=== PATIENT | female | born 2000 | race African-American/Black ===

== ENCOUNTER 2021-05-20 17:47 | Inpatient (IN) | payer OTHER ==
--- OUTSIDE RECORDS SUMMARY | 2021-05-20 17:50 | XMS REPORT | Continuity of Care Document ---
:2000 Author Organization [facility] t Address [address] [place] [address] Care Team Providers Name Role Phone Unavailable Unavailable Unavailable Problems This patient has no known problems. Allergies, Adverse Reactions, Alerts This patient has no known allergies or adverse reactions. Medications This patient has no known medications. Procedures This patient has no known procedures. Results This patient has no known results.
[2021-05-20 18:26] LABS: Absolute Lymphocytes (CBC) 0.8 K/uL (0.7-4.9); Hematocrit 31.7 % (36.0-45.0); Lymphocytes % 2.9 % (15.3-44.8); MPV 8.1 fL (7.6-11.3); RBC Red Blood Cell Count 4.63 M/uL (3.86-4.86)
[2021-05-20] MEDS ORDERED: MORPHINE 4 MG/ML SYR ONE ×2 (18:30→23:08)
[2021-05-20] MEDS ORDERED: ONDANSETRON 4 MG/2 ML VIAL ONE (18:30)
[2021-05-20] MEDS ORDERED: ACETAMINOPHEN 325 MG TABLET ONE (18:31)
[2021-05-20] MEDS ORDERED: NA CHLORIDE 0.9% 1,000 ML ONE (18:31)
[2021-05-20 18:35] LABS: Urine Blood 2+ (Negative); Urine Glucose Negative (Negative); Urine Protein 3+ (Negative); Urine pH 5.5 (5.0-7.0)
[2021-05-20] MEDS ORDERED: CEFTRIAXONE 1000 MG/VIAL ONE (19:01)
[2021-05-20 19:03] LABS: RBC Red Blood Cell Count 4.7 M/uL (3.86-4.86)
--- NOTE | 2021-05-20 19:06 | RAD REPORT ---
EXAM DESCRIPTION: RAD - Chest Single View - 05/20/2021 6:47 pm CLINICAL HISTORY: fever, sickle cell COMPARISON: No comparisons FINDINGS: Lines: None. Lungs: No evidence of edema or pneumonia. Pleural: No significant pleural effusions or pneumothorax. Cardiac: The heart size is within normal limits. Bones: No acute fractures. Other: IMPRESSION: No acute cardiopulmonary disease.
[2021-05-20 19:19] LABS: Urine Bacteria >50 /HPF (<20); Urine RBC <5 /HPF (NONE SEEN)
[2021-05-20 19:19] LABS: BUN Blood Urea Nitrogen 7 mg/dL (7-18); Bicarbonate 27 mmol/L (21-32); Glucose Level 129 mg/dL (74-106); Potassium 3.3 mmol/L (3.5-5.1); Sodium Level 136 mmol/L (136-145)
[2021-05-20 19:33] LABS: Blood Morphology Comment NOT SEEN (NOT SEEN); Platelet Estimate ADEQ
[2021-05-20 19:38] LABS: SARS-COV-2 RT PCR NEGATIVE (NEGATIVE)
--- NOTE | 2021-05-20 20:24 | RAD REPORT ---
EXAM DESCRIPTION: CTAbdomen Pelvis W Contrast - 05/20/2021 8:14 pm CLINICAL HISTORY: Flank pain;Fever COMPARISON: No comparisons TECHNIQUE: CT of the abdomen and pelvis was performed. All CT scans are performed using dose optimization technique as appropriate and may include automated exposure control or mA/KV adjustment according to patient size. FINDINGS: Lower chest: No acute abnormality. Liver: No acute abnormality or suspicious lesions. Biliary: No biliary ductal dilatation. Stomach: No significant focal abnormality. Duodenum: No significant focal abnormality. Pancreas: No significant abnormality. Spleen: No significant abnormality. Adrenal: No suspicious lesions. Kidney/ureter: No hydronephrosis. Left-sided urothelial thickening. Question subtle renal cortical st riations bilaterally. Retroperitoneum: No retroperitoneal adenopathy. Vascular: No aneurysm. Bowel: No significant focal abnormality. Normal appendix. Peritoneum: Small volume of free fluid in the pelvis which is likely physiologic. Bladder: Circumferential bladder wall thickening. Reproductive: No adnexal masses. Bones: No acute fracture. H-shaped vertebral bodies consistent with history of sickle cell disease. 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 . Other: n/a IMPRESSION: Circumferential bladder wall thickening and left urothelial thickening concerning for cy stitis and ascending urinary tract infection. Subtle renal striations could represent bilateral pyelo nephritis as well. No abscess or hydronephrosis.
--- NOTE | 2021-05-20 20:32 | ER ---
Nurse's Notes [facility] Name: Abad Romero Age: 20 yrs Sex: Female : 2000 Arrival Date: 05/20/2021 Time: 17:49 Bed 14 Private MD: Diagnosis: Pyelonephritis acute;Other sickle-cell disorders Presentation: 05/20 17:56 Chief complaint: Patient states: "I am having a sickle cell crisis, muscles are tight". ag7 Coronavirus screen: Client denies travel out of the [place] in the last 14 days. At this time, the client does not indicate any symptoms associated with coronavirus-19. Ebola Screen: No symptoms or risks identified at this time. Initial Sepsis Screen: Does the patient meet any 2 criteria? No. Patient's initial sepsis screen is negative. Does the patient have a suspected source of infection? No. Patient's initial sepsis screen is negative. Risk Assessment: Do you want to hurt yourself or someone else? Patient reports no desire to harm self or others. Onset of symptoms was May 20, 2021. 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 - Social history:: Smoking status: Patient denies any tobacco usage or history of. - Family history:: not pertinent. - Hospitalizations: : No recent hospitalization is reported. Screenin:16 Abuse screen: Denies threats or abuse. Denies injuries from another. Nutritional cb5 screening: No deficits noted. Tuberculosis screening: No symptoms or risk factors identified. 20:52 Fall Risk None identified. tw5 Assessment: 18:10 General: Appears uncomfortable, Behavior is calm, cooperative, appropriate for age. cb5 Pain: Complains of pain in back Pain does not radiate. Pain currently is 6 out of 10 on a pain scale. Neuro: No deficits noted. Level of Consciousness is awake, alert, obeys commands, Oriented to person, place, time, situation, Appropriate for age. Cardiovascular: No deficits noted. Respiratory: No deficits noted. GI: No deficits noted. : No signs and/or symptoms were reported regarding the genitourinary system. EENT: No deficits noted. Derm: No deficits noted. Musculoskeletal: No deficits noted. 18:31 Reassessment: wbc 26.3. edwards 22:01 Reassessment: Report called to Radha zamora.. sv1 Vital Signs: 17:56 BP 135 / 85; Pulse 104; Resp 20; Temp 100.5; Pulse Ox 100% on R/A; Weight 55.02 kg; ag7 Height 5 ft. 4 in. (162.56 cm); Pain 5/10; 20:52 BP 124 / 87 LA Sitting (auto/reg); Pulse 90 MON; Resp 16 S; Temp 98.5(TE); Pulse Ox tw5 100% on R/A; Pain 0/10; 21:52 BP 124 / 73 LA Supine (man/reg); Pulse 77 MON; Resp 16 S; Temp 98.7(O); Pulse Ox 100% sv1 on R/A; Pain 0/10; 17:56 Body Mass Index 20.82 (55.02 kg, 162.56 cm) ag7 ED Course: 17:49 Patient arrived in ED. as 18:00 Triage completed. ag7 18:02 Arm band placed on. ag7 18:03 Matthias Lxu MD is Attending Physician. rn 18:16 Procalcitonin Sent. cb5 18:16 CBC with Automated Diff Sent. cb5 18:16 Basic Metabolic Panel Sent. cb5 18:16 Procalcitonin Sent. cb5 18:16 Basic Metabolic Panel Sent. cb5 18:16 CBC with Diff Sent. cb5 18:25 Ashanti Call, RN is Primary Nurse. cb5 18:25 Blood Culture Adult (2) Sent. cb5 18:25 COVID-19/FLU A+B (Document "Date of Onset" if Symptomatic) Sent. cb5 18:47 XRAY Chest (1 view) In Process Unspecified. EDMS 18:55 Retic Count Sent. cb5 19:02 Primary Nurse role handed off by Ashanti Call, RN cs9 19:03 Attending Physician role handed off by Matthias Lux MD [facility] 19:03 Jun Oshea MD is Attending Physician. 7 19:09 Ashanti Call, RN is Primary Nurse. [facility] 19:17 Bed in low position. Call light in reach. Side rails up X 1. [facility] 19:17 Report given to Tanja Watson [facility] 20:13 CT Abd/Pelvis - IV Contrast Only In Process Unspecified. EDMS 20:30 Prince Briones MD is Hospitalizing Provider. [facility] 20:55 Urine --Ancillary (enter results) Sent. tw5 22:01 No provider procedures requiring assistance completed. Patient admitted, IV remains in sv1 place. Administered Medications: 18:32 Drug: NS 0.9% 1000 ml Route: IV; Rate: 1000 ml; Site: right antecubital; cb5 18:32 Drug: Zofran (Ondansetron) 4 mg Route: IVP; Site: right antecubital; 5 18:33 Drug: morphine 4 mg Route: IVP; Site: right antecubital; 5 18:33 Drug: Tylenol 650 mg Route: PO; 5 19:00 Drug: Rocephin (cefTRIAXone) 1 grams Route: IV; Rate: calculated rate; Site: right cb5 antecubital; 20:50 Follow up: Response: No adverse reaction tw5 22:03 Follow up: Response: No adverse reaction sv1 Outcome: 20:31 Decision to Hospitalize by Provider. [facility] 22:01 Admitted to Med/surg accompanied by tech, room 276, Report called to Radha sv1 22:02 Condition: improved sv1 22:02 Instructed on the need for admit. 22:07 Patient left the ED. sv1 Signatures: Dispatcher [employer] EDVA Ade Og as Matthias Lux MD MD rn Holmes, Maurice, MD MD 7 Tiffany Musa [facility] Emma Kovacs [facility] Walter Lockett, RN GERA 1 Helga-Gianna Vazquez RN RN edwards Ashanti Call, RN GERA 5 Asuncion Hawkins RN RN ag7 Corrections: (The following items were deleted from the chart) 18:02 18:00 PMHx: None; ag7 ag7
--- NOTE | 2021-05-20 20:32 | EDPHYS ---
Physician Documentation [facility] Name: Abad Romero Age: 20 yrs Sex: Female : 2000 Arrival Date: 05/20/2021 Time: 17:49 Bed 14 Private MD: ED Physician Jun Oshea HPI: 05/20 18:14 This 20 yrs old Black Female presents to ER via Ambulatory with complaints of Sickle rn Cell Crisis, Back Pain. 18:14 The patient presents with pain that is acute, with no known mechanism of injury. The rn symptoms are located in the low back. Onset: The symptoms/episode began/occurred 4 day(s) ago. The pain does not radiate. Associated signs and symptoms: Pertinent positives: none Pertinent negatives: abdominal pain, chest pain, fever, hematuria, incontinence, urinary retention. Modifying factors: The patient symptoms are alleviated by nothing, the patient symptoms are aggravated by any movement. Severity of symptoms: At their worst the symptoms were moderate, in the emergency department the symptoms are unchanged. The patient has experienced similar episodes in the past. The patient has not recently seen a physician. Pt reports has sickle cell disease, with 3-4 days of low back pain, no trauma. Similar pain in past, but worse today. No chest pain/sob/abd pain. No nasal congestion. No diarrhea or vomiting. . 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 - Social history:: Smoking status: Patient denies any tobacco usage or history of. - Family history:: not pertinent. - Hospitalizations: : No recent hospitalization is reported. ROS: 18:14 Constitutional: + chills Eyes: Negative for injury, pain, redness, and discharge, ENT: rn Negative for injury, pain, and discharge, Neck: Negative for injury, pain, and swelling, Cardiovascular: Negative for chest pain, palpitations, and edema, Respiratory: Negative for shortness of breath, cough, wheezing, and pleuritic chest pain, Abdomen/GI: Negative for abdominal pain, nausea, vomiting, diarrhea, and constipation, Back: Negative for injury MS/Extremity: Negative for injury and deformity, Skin: Negative for injury, rash, and discoloration, Neuro: Negative for headache, weakness, numbness, tingling, and seizure. Exam: 18:14 Constitutional: This is a well developed, well nourished patient who is awake, alert, rn and in no acute distress. Head/Face: Normocephalic, atraumatic. Eyes: Periorbital areas with no swelling, redness, or edema. Cardiovascular: Tachycardic, regular. No pulse deficits. Respiratory: Speaking full sentences, unlabored. No increased work of breathing, no retractions or nasal flaring. Abdomen/GI: Soft, non-tender Back: No spinal tenderness. Skin: Warm, dry MS/ Extremity: Pulses equal, no cyanosis. Neuro: Awake and alert, GCS 15 Vital Signs: 17:56 BP 135 / 85; Pulse 104; Resp 20; Temp 100.5; Pulse Ox 100% on R/A; Weight 55.02 kg; ag7 Height 5 ft. 4 in. (162.56 cm); Pain 5/10; 20:52 BP 124 / 87 LA Sitting (auto/reg); Pulse 90 MON; Resp 16 S; Temp 98.5(TE); Pulse Ox tw5 100% on R/A; Pain 0/10; 21:52 BP 124 / 73 LA Supine (man/reg); Pulse 77 MON; Resp 16 S; Temp 98.7(O); Pulse Ox 100% sv1 on R/A; Pain 0/10; 17:56 Body Mass Index 20.82 (55.02 kg, 162.56 cm) [facility] MDM: 18:03 Patient medically screened. rn 20:29 Differential diagnosis: Pyelonephritis sickle cell crisis, Ureterolithiasis. Data [facility] reviewed: vital signs, nurses notes, lab test result(s), CBC, electrolytes, urinalysis, radiologic studies, CT scan. Data interpreted: Pulse oximetry: on room air is 100 %. Interpretation: normal. Counseling: I had a detailed discussion with the patient and/or guardian regarding: the historical points, exam findings, and any diagnostic results supporting the discharge/admit diagnosis, lab results, radiology results, the need for further work-up and treatment in the hospital. Response to treatment: the patient's symptoms have mildly improved after treatment. 05/20 18:10 Order name: CBC with Diff rn 05/20 18:10 Order name: Basic Metabolic Panel rn 05/20 18:10 Order name: Procalcitonin rn 05/20 18:10 Order name: Blood Culture Adult (2) rn 05/20 18:10 Order name: Urine Microscopic Only; Complete Time: 19:32 05/20 18:10 Order name: COVID-19/FLU A+B (Document "Date of Onset" if Symptomatic); Complete Time: rn 19:42 05/20 18:11 Order name: CBC with Automated Diff; Complete Time: 19:37 EDWV 05/20 18:11 Order name: Basic Metabolic Panel; Complete Time: 19:27 EDWV 05/20 18:11 Order name: Procalcitonin; Complete Time: 19:42 EDWV 05/20 18:34 Order name: Urine Dipstick-Ancillary; Complete Time: 18:40 EDWV 05/20 18:40 Order name: Urine --Ancillary (enter results) 9 05/20 18:40 Order name: Urine --Ancillary; Complete Time: 19:32 EDWV 05/20 18:51 Order name: Retic Count; Complete Time: 19:05 05/20 19:21 Order name: Urine Culture [facility] 05/20 18:10 Order name: IV Start; Complete Time: 18:16 05/20 18:10 Order name: Urine Dipstick-Ancillary (obtain specimen); Complete Time: 18:37 05/20 18:10 Order name: Urine Test (obtain specimen); Complete Time: 18:37 rn 05/20 18:10 Order name: XRAY Chest (1 view); Complete Time: 19:32 rn 05/20 18:11 Order name: Cardiac monitoring; Complete Time: 18:16 rn 05/20 18:11 Order name: O2 Sat Monitoring; Complete Time: 18:16 rn 05/20 18:40 Order name: Misc. Order: Recollect all labs; Complete Time: 20:50 jl7 05/20 19:33 Order name: Manual Differential; Complete Time: 19:37 EDWV 05/20 19:50 Order name: CT Abd/Pelvis - IV Contrast Only; Complete Time: 20:29 [facility] 05/20 20:52 Order name: Lactate la1 Administered Medications: 18:32 Drug: NS 0.9% 1000 ml Route: IV; Rate: 1000 ml; Site: right antecubital; cb5 18:32 Drug: Zofran (Ondansetron) 4 mg Route: IVP; Site: right antecubital; cb5 18:33 Drug: morphine 4 mg Route: IVP; Site: right antecubital; cb5 18:33 Drug: Tylenol 650 mg Route: PO; cb5 19:00 Drug: Rocephin (cefTRIAXone) 1 grams Route: IV; Rate: calculated rate; Site: right cb5 antecubital; 20:50 Follow up: Response: No adverse reaction tw5 22:03 Follow up: Response: No adverse reaction sv1 Disposition Summary: 05/20/21 20:31 Hospitalization Ordered Hospitalization Status: Inpatient Admission [facility] Provider: Prince Anselmo [facility] Location: Telemetry/MedSurg (Inpatient) [facility] Condition: Stable [facility] Problem: new [facility] Symptoms: have improved [facility] Bed/Room Type: Standard [facility] Room Assignment: 216(05/20/21 21:19) Diagnosis - Pyelonephritis acute [facility] - Other sickle-cell disorders [facility] Forms: - Medication Reconciliation Form [facility] - SBAR form [facility] Signatures: Dispatcher [employer] EDMS Matthias Lux MD MD rn Attema, Lee, OCEANOLOGIST-C OCEANOLOGIST-Cla1 Michelle Cerda RN RN cg Letty Power RN RN jl7 Jun Oshea MD MD [facility] Ashanti Call RN RN cb5 Asuncion Hawkins RN RN Tiffany Sheikh 5 Walter Lockett RN sv1 Corrections: (The following items were deleted from the chart) 18:02 18:00 PMHx: None; ag7 ag7 21:19 20:31 [facility] [place]
--- NOTE | 2021-05-20 21:01 | P.HP ---
Certification for Inpatient Patient admitted to: Inpatient With expected LOS: >2 Midnights Patient will require the following post-hospital care: None Practitioner: I am a practitioner with admitting privileges, knowledge of patient current condition, hospital course, and medical plan of care. Services: Services provided to patient in accordance with Admission requirements found in Title 42 Section 412.3 of the Code of Federal Regulations Patient History Date of Service: 05/20/21 Reason for admission: Pyelonephritis History of Present Illness: 20-year-old -[place] female with history of sickle cell disease presents emergency department for right flank pain over the course of last 4 days. Patient does not frequently have sickle cell crisis. Patient was evaluated here in the emergency department labs were significant for leukocytosis white blood cell count 26.3 hemoglobin 10.6 hematocrit 31.7 potassium 3.3 procalcitonin 1.73 urinalysis nitrite +1+ leukoesterase on microscopic Alysis greater than 50 bacteria too numerous to count white blood cell CT abdomen pelvis with IV contrast demonstrates circumferential bladder wall thickening and left urothelial thickening concerning for cystitis and ascending urinary tract infection subtle renal striations could represent bilateral pyelonephritis as well no abscess or hydronephrosis noted. Patient with acute complicated urinary tract infection was given dose of Rocephin in the emergency department. Patient appears nontoxic vital signs are stable blood pressure 124/87 heart rate 92. Will admit to the floor for further evaluation and management of pyelonephritis, possible sickle cell crisis. - Past Medical/Surgical History -: Sickle cell disease -: None Psychosocial/ Personal History: Patient lives at home with family - Family History Mother -: Cancer Father -: Cancer - Social History Smoking Status: Never smoker Alcohol use: No CD- Drugs: No Caffeine use: Yes Place of Residence: Home Review of Systems 10-point ROS is otherwise unremarkable General: Chills, Malaise Musculoskeletal: Back Pain Physical Examination - Physical Exam General: Alert, In no apparent distress, Oriented x3 HEENT: Atraumatic, PERRLA, Mucous membr. moist/pink, EOMI, Sclerae nonicteric Neck: Supple, 2+ carotid pulse no bruit, No LAD, Without JVD or thyroid abnormality Respiratory: Clear to auscultation bilaterally, Normal air movement Cardiovascular: Regular rate/rhythm, Normal S1 S2 Gastrointestinal: Normal bowel sounds, No tenderness Musculoskeletal: No tenderness Integumentary: No rashes Neurological: Normal speech, Normal strength at 5/5 x4 extr, Normal tone, Normal affect - Studies Laboratory Data (last 24 hrs) 05/20/21 18:46: Sodium 136, Potassium 3.3 L, BUN 7, Creatinine 0.64, Glucose 129 H 05/20/21 18:10: WBC 26.30 H*, Hgb 10.6 L, Hct 31.7 L, Plt Count 249 Assessment and Plan - Plan Assessment: Sepsis without severe sepsis or septic shock secondary to pyelonephritis/complicated UTI Sickle cell crisis Plan: Sepsis without severe sepsis or septic shock secondary to pyelonephritis/ complicated UTI: Blood and urine cultures were obtained. Patient appears nontoxic, feels well without any nausea or vomiting. Will continue with IV fluids, IV antibiotics, as needed pain medications. Wait on results from urine/blood cultures. Vital signs are stable no signs of endorgan damage at this time. Lactic acid pending. Sickle cell crisis: Continue with as needed pain medication, daily reticulocyte count in addition to CBC. DVT PPX: Lovenox Code status: Full Discharge Plan: Home Plan to discharge in: 48 Hours - Advance Directives Does patient have a Living Will: No Does patient have a Durable POA for Healthcare: No - Code Status/Comfort Care Code Status Assessed: Yes (Full code) Critical Care: No Time Spent Managing Pts Care (In Minutes): 55
[2021-05-20] MEDS ORDERED: ONDANSETRON 4 MG/2 ML VIAL IV PRN (22:06)
[2021-05-20] MEDS ORDERED: MORPHINE 2 MG/ML SYR IV PRN (22:06)
[2021-05-20] MEDS: NA CHLORIDE 0.9% 1,000 ML IV SCH (22:30)
[2021-05-20 22:39] VITALS: O2SAT 100
[2021-05-20 22:46] VITALS: BMI 20.6
[2021-05-21] MEDS ORDERED: ACETAMINOPHEN 325 MG TABLET PO PRN (01:25)
[2021-05-21] MEDS: HYDROCODONE/APAP 5/325 MG TAB PO PRN ×3 (01:35→18:44)
--- NOTE | 2021-05-21 02:42 | P.INFCA ---
Sepsis Focused Assessment - Focused Assessment Complete? Sepsis Focused Assessment Completed?: Yes - Sepsis Screen Result Severe Sepsis: Negative Septic Shock: Negative - Evaluation Current stage of sepsis: Ruled out Reason for ruling out sepsis: Sepsis without severe sepsis or septic shock - Vital Signs Reviewed: Yes Temperature: 99.5 F Heart rate: 96 Blood Pressure: 120/63 Respiratory Rate: 16 O2 Sat by Pulse Oximetry: 99
[2021-05-21 05:35] LABS: Absolute Lymphocytes (CBC) 0.9 K/uL (0.7-4.9); Hematocrit 27.7 % (36.0-45.0); Lymphocytes % 3.7 % (15.3-44.8); MPV 8.1 fL (7.6-11.3); RBC Red Blood Cell Count 3.99 M/uL (3.86-4.86)
[2021-05-21 06:04] LABS: ALT/SGPT 11 U/L (12-78); AST/SGOT 8 U/L (15-37); Alkaline Phosphatase 62 U/L (45-117); BUN Blood Urea Nitrogen 5 mg/dL (7-18); Bicarbonate 28 mmol/L (21-32); Bilirubin Total 1.3 mg/dL (0.2-1.0); Glucose Level 122 mg/dL (74-106); Magnesium 2.2 mg/dL (1.8-2.4); Potassium 3.4 mmol/L (3.5-5.1); Protein, Total 7.6 g/dL (6.4-8.2); Sodium Level 136 mmol/L (136-145)
[2021-05-21] MEDS: NA CHLORIDE 0.9% 1,000 ML IV SCH ×2 (06:15→14:04)
[2021-05-21] MEDS: ENOXAPARIN 40 MG/0.4 ML SQ SCH (08:00)
[2021-05-21] MEDS: Levofloxacin 750mg IV 750 MG/150 ML BAG IV SCH (08:00)
[2021-05-21] MEDS: FOLIC ACID 1 MG TABLET PO SCH (08:44)
[2021-05-21] MEDS ORDERED: MORPHINE 4 MG/ML SYR IV PRN (08:48)
[2021-05-21] MEDS ORDERED: CEFTRIAXONE 1,000 MG in NA CHLORIDE 0.9% 50 ML IVPB SCH (09:00)
[2021-05-21] MEDS ORDERED: POTASSIUM CL SA 10 MEQ TAB PO ONE ×2 (09:00→21:00)
--- NOTE | 2021-05-21 11:41 | P.PN ---
Subjective Date of Service: 05/21/21 Chief Complaint: Pyelonephritis Subjective: Improving Physical Examination - Vital Signs Temperature: 99.5 F Blood Pressure: 137/81 Pulse: 78 Respirations: 16 Pulse Ox (%): 100 - Physical Exam General: In no apparent distress, Cooperative HEENT: Atraumatic, Normocephalic Respiratory: Clear to auscultation bilaterally, Normal air movement Cardiovascular: Regular rate/rhythm, Normal S1 S2 Gastrointestinal: Other (No CVA tenderness) Musculoskeletal: No clubbing, No swelling, No contractures, No erythema Neurological: Normal speech, Normal affect - Studies Laboratory Data (last 24 hrs) 05/20/21 18:46: Sodium 136, Potassium 3.3 L, BUN 7, Creatinine 0.64, Glucose 129 H 05/20/21 18:10: WBC 26.30 H*, Hgb 10.6 L, Hct 31.7 L, Plt Count 249 Assessment And Plan - Current Problems (Diagnosis) (1) Acute pyelonephritis due to bacteria Current Visit: Yes Status: Acute (2) Sickle cell anemia Current Visit: Yes Status: Acute Physician Review Additional Text: Assessment Patient is a 20 year old female with a history of sickle cell anemia currently admitted with pyelonephritis after she presented with a flank pain Sepsis UTI Sickle cell anemia PLAN: Will change antibiotics to levofloxacin Follow up urine and blood cultures Resume folic acid for sickle cell anemia Discharge in 2-3 days
[2021-05-21] MEDS ORDERED: INFLUENZA VACCINE (for 6+ mo) 0.5 ML DOSE IMVAC ONE (12:00)
[2021-05-22] MEDS: NA CHLORIDE 0.9% 1,000 ML IV SCH (02:11)
[2021-05-22] MEDS: HYDROCODONE/APAP 5/325 MG TAB PO PRN ×2 (02:12→08:32)
[2021-05-22 05:20] LABS: Absolute Lymphocytes (CBC) 1.1 K/uL (0.7-4.9); Hematocrit 28.2 % (36.0-45.0); Lymphocytes % 7.7 % (15.3-44.8); MPV 8.2 fL (7.6-11.3); RBC Red Blood Cell Count 3.98 M/uL (3.86-4.86)
[2021-05-22 05:39] LABS: ALT/SGPT 11 U/L (12-78); AST/SGOT 8 U/L (15-37); Albumin 2.9 g/dL (3.4-5.0); Alkaline Phosphatase 56 U/L (45-117); BUN Blood Urea Nitrogen 4 mg/dL (7-18); Bicarbonate 27 mmol/L (21-32); Bilirubin Total 1.1 mg/dL (0.2-1.0); Glucose Level 111 mg/dL (74-106); Magnesium 2.1 mg/dL (1.8-2.4); Potassium 3.7 mmol/L (3.5-5.1); Protein, Total 7.5 g/dL (6.4-8.2); Sodium Level 135 mmol/L (136-145)
[2021-05-22] MEDS: FOLIC ACID 1 MG TABLET PO SCH (08:29)
[2021-05-22] MEDS: ENOXAPARIN 40 MG/0.4 ML SQ SCH (08:29)
[2021-05-22] MEDS: Levofloxacin 750mg IV 750 MG/150 ML BAG IV SCH (08:29)
[2021-05-22] MEDS ORDERED: POTASSIUM 25 MEQ EFFERV TAB PO ONE (09:00)
[2021-05-22 12:29] VITALS: BP 128/84; TEMP 98.5
[2021-05-22] MEDS ORDERED: MORPHINE 2 MG/ML SYR IV PRN (12:52)
== END 2021-05-22 04:00 | disposition home or self-care (01) | DRG 871 ==
LOC: ER 17:47 → ERHOLD 20:54 → 2ND 21:51
PROVIDERS: ADMIT Internal Medicine; ATTEND Internal Medicine
DX: A41.9 Sepsis, unspecified organism (principal); D57.00 Hb-SS disease with crisis, unspecified; N10 Acute pyelonephritis; Z23 Encounter for immunization; Z20.822 Contact with and (suspected) exposure to COVID-19
CPT/HCPCS: 0240U; 36415; 71045; 74177; 80048; 80053; 81003; 81015; 81025; 83605; 83735; 84132; 84145; 85025; 85044; 87040; 87077; 87086; 87088; 87186; 87205; 90471; 96374; 96375; 99285; J1650; J2405; J7030; Q2035; Q9967

== ENCOUNTER 2022-04-17 16:55 | Inpatient (IN) | payer OTHER ==
--- OUTSIDE RECORDS SUMMARY | 2022-04-17 16:59 | XMS REPORT | Continuity of Care Document ---
:2000 Author Organization [facility] t Address [facility] 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-john 04-13 [place] y of l disease l disease 00[place] without without 00 Medical crisis crisis [facility] Allergies, Adverse Reactions, Alerts Allergy Allergy Status Severity Reaction(s) Onset Inactive Treating Comm ents Source Name Type Date Date Clinician NO KNOWN Drug Active Univers ALLERGIE Class ity of S [facility] Social History Social Habit Start Date Stop Date Quantity Comments Source Exposure to 2022-02-17 2022-02-27 Not sure [facility]-CoV-2 00:00:00 08:23:00 [facility] (event) [facility] Alcohol intake 2021-09-06 2021-09-06 Ex-drinker [facility] 00:00:00 00:00:00 (finding) [facility] Tobacco use and 2021-08-22 2021-08-22 Smokeless tobacco Un iversity of exposure 00:00:00 00:00:00 non-user [facility] Sex Assigned At 2000 2000 Universit y of 00:00:00 00:00:00 [facility] Smoking Status Start Date Stop Date Source Never smoked tobacco [facility] Medications Ordered Filled Start Stop Current Ordering Indication Dosage Frequency Signature Comments Components Source Medication Medication Date Date Medication? Clinician (SIG) Name Name medroxyPROG 2021-03- Yes [id number] 150mg Univers ESTERone 2-15 08-16 ity of (DEPO-PROVE 16:45: 15:44 [place] RA) syringe 00 :00 Medical 150 mg Branch medroxyPROG 2021-03- Yes [id number] 150mg 150 mg, Univers ESTERone 2-15 08-16 Intramuscu ity of (DEPO-PROVE 16:45: 15:44 [facility], [place] RA) syringe 00 :00 [id number], Med ical 150 mg 2 doses, Branch First dose on Francia 03/01/22 at 1045, Last dose on Francia 05/24/22 at 1045, Routine medroxyPROG 2021- No [id number] 150mg Univers ESTERone 12-07 ity of (DEPO-PROVE 16:30: 15:37 [place] RA) syringe 00 :00 Medical 150 mg Branch medroxyPROG 2021- No [id number] 150mg 150 mg, Univers ESTERone 12-07 Intramuscu ity of (DEPO-PROVE 16:30: 15:37 lar, ONCE, [place] RA) syringe 00 :00 1 dose, On Me dical 150 mg Francia Branch 12/07/21 at 1130, Routine medroxyPROG 2022- No [id number] 150mg Univers ESTERone 09-0624 ity of (DEPO-PROVE 15:00: 14:59 [place] RA) 00 :00 Medical injection Branch 150 mg medroxyPROG 2021- No [id number] 150mg Univers ESTERone 09-06 ity of (DEPO-PROVE 15:00: 15:37 [place] RA) 00 :05 Medical injection Branch 150 mg foLIC acid 2020-1 Yes [id number] 1mg Take 1 Univers 1 mg tablet 0-07 tablet by ity of 00:00: mouth [place] 00 daily. Medical Branch foLIC acid 2020-1 Yes [id number] 1mg Take 1 Univers 1 mg tablet 0-07 tablet by ity of 00:00: mouth [place] 00 daily. Medical Branch foLIC acid 2020-1 Yes [id number] 1mg Take 1 Univers 1 mg tablet 0-07 tablet by ity of 00:00: mouth [place] 00 daily. Medical Branch foLIC acid 2020-1 Yes [id number] 1mg Take 1 Univers 1 mg tablet 0-07 tablet by ity of 00:00: mouth [place] 00 daily. Medical Branch Immunizations Ordered Filled Immunization Date Status Comments [facility] e Immunization Name Name Influenza Virus 2017-12-11 Completed Universit y of Vaccine Quad .5 mL 00:00:00 [place] Medical IM 6+ MO Branch Influenza Virus 2017-12-11 Completed Universit y of Vaccine Quad .5 mL 00:00:00 [place] Medical IM 6+ MO Branch Influenza Virus 2017-12-11 Completed Universit y of Vaccine Quad .5 mL 00:00:00 [place] Medical IM 6+ MO Branch Influenza Virus 2017-12-11 Completed Universit y of Vaccine Quad .5 mL 00:00:00 [place] Medical IM 6+ MO Branch Influenza Virus 2016-03-07 Completed Universit y of Vaccine Quad IM 3+ 00:00:00 [facility] Influenza Virus 2016-03-07 Completed Universit y of Vaccine Quad IM 3+ 00:00:00 [facility] Influenza Virus 2016-03-07 Completed Universit y of Vaccine Quad IM 3+ 00:00:00 [facility] Influenza Virus 2016-03-07 Completed Universit y of Vaccine Quad IM 3+ 00:00:00 [facility] Influenza Virus 2015-02-07 Completed Universit y of Vaccine Quad IM 3+ 00:00:00 [facility] Influenza Virus 2015-02-07 Completed Universit y of Vaccine Quad IM 3+ 00:00:00 [facility] Influenza Virus 2015-02-07 Completed Universit y of Vaccine Quad IM 3+ 00:00:00 [facility] Influenza Virus 2015-02-07 Completed Universit y of Vaccine Quad IM 3+ 00:00:00 [facility] Influenza Virus 2014-05-26 Completed Universit y of Vaccine Quad IM 00:00:00 [place] Med ical Multi-dose 6+ MO Branch Influenza Virus 2014-05-26 Completed Universit y of Vaccine Quad IM 00:00:00 [place] Med ical Multi-dose 6+ MO Branch Influenza Virus 2014-05-26 Completed Universit y of Vaccine Quad IM 00:00:00 [place] Med ical Multi-dose 6+ MO Branch Influenza Virus 2014-05-26 Completed Universit y of Vaccine Quad IM 00:00:00 [place] Med ical Multi-dose 6+ MO Branch HPV 2013-08-22 Completed University of 00:00:00 [facility] HPV 2013-08-22 Completed University of 00:00:00 [facility] HPV 2013-08-22 Completed University of 00:00:00 [facility] HPV 2013-08-22 Completed University of 00:00:00 [facility] Varicella 2013-08-05 Completed University of (varivax)(chicken 00:00:00 [place] M edical pox) Branch TDAP (ADACEL) 2013-08-05 Completed University of VACCINE 00:00:00 [facility] Varicella 2013-08-05 Completed University of (varivax)(chicken 00:00:00 [place] M edical pox) Branch TDAP (ADACEL) 2013-08-05 Completed University of VACCINE 00:00:00 [facility] Varicella 2013-08-05 Completed University of (varivax)(chicken 00:00:00 [place] M edical pox) Branch TDAP (ADACEL) 2013-08-05 Completed University of VACCINE 00:00:00 [facility] Varicella 2013-08-05 Completed University of (varivax)(chicken 00:00:00 [place] M edical pox) Branch TDAP (ADACEL) 2013-08-05 Completed University of VACCINE 00:00:00 [facility] Pneumococcal 2013-02-11 Completed University o f Polysaccharide, 00:00:00 [place] Med ical PPSV23 (PNEUMOVAX) Branch Pneumococcal 2013-02-11 Completed University o f Polysaccharide, 00:00:00 [place] Med ical PPSV23 (PNEUMOVAX) Branch Pneumococcal 2013-02-11 Completed University o f Polysaccharide, 00:00:00 [facility] ical PPSV23 (PNEUMOVAX) Branch Pneumococcal 2013-02-11 Completed University o f Polysaccharide, 00:00:00 [facility] ical PPSV23 (PNEUMOVAX) Branch Influenza Virus 2013-01-12 Completed Universit y of Vaccine (3+ yrs) 00:00:00 [facility] Influenza Virus 2013-01-12 Completed Universit y of Vaccine (3+ yrs) 00:00:00 [facility] Influenza Virus 2013-01-12 Completed Universit y of Vaccine (3+ yrs) 00:00:00 [facility] Influenza Virus 2013-01-12 Completed Universit y of Vaccine (3+ yrs) 00:00:00 [facility] HPV 2012-08-22 Completed University of 00:00:00 [facility] HPV 2012-08-22 Completed University of 00:00:00 [facility] HPV 2012-08-22 Completed University of 00:00:00 [facility] HPV 2012-08-22 Completed University of 00:00:00 [facility] Vital Signs Vital Name Observation Time Observation Value Comments Source Systolic blood 2022-03-01 15:41:00 120 mm[Hg] Univer sity of pressure [facility] Diastolic blood 2022-03-01 15:41:00 65 mm[Hg] Unive rsity of pressure [facility] Heart rate 2022-03-01 15:41:00 78 /min Universi ty of [facility] Body temperature 2022-03-01 15:41:00 36.89 John Univ ersity of [facility] Respiratory rate 2022-03-01 15:41:00 16 /min Univ ersity of [facility] Body height 2022-03-01 15:41:00 162.6 cm Universi ty of [facility] Body weight 2022-03-01 15:41:00 61.598 kg Universi ty of [facility] BMI 2022-03-01 15:41:00 23.31 kg/m2 Universi ty of [facility] Systolic blood 2021-12-07 15:34:00 122 mm[Hg] Univer sity of pressure [facility] Diastolic blood 2021-12-07 15:34:00 77 mm[Hg] Unive rsity of pressure [facility] Heart rate 2021-12-07 15:34:00 75 /min Universi ty of [facility] Body temperature 2021-12-07 15:34:00 36.89 [facility] ersity of [facility] Respiratory rate 2021-12-07 15:34:00 20 /min [facility] ersity of [facility] Body height 2021-12-07 15:34:00 162.6 cm Universi ty of [facility] Body weight 2021-12-07 15:34:00 60.374 kg Universi ty of [facility] BMI 2021-12-07 15:34:00 22.85 kg/m2 Universi ty [facility] Procedures This patient has no known procedures. Encounters Start End Encounter Admission Attending Care Care Encounter Source Date/Time Date/Time Type Type Clinicians Facility Department ID 2022-05-24 2022-05-24 Outpatient R [facility] [id number] Univers 09:30:00 09:30:00 ity [facility] 2022-03-01 2022-03-01 Outpatient R BRIE FLMARITZA [facility] [id number] Univers 09:30:00 09:40:13 BONNIE ity [facility] 2022-03-01 2022-03-01 Nurse Visit, Alonzo-Rmchp Nurse [facility] [id number] .[id number] Univers 09:30:00 09:40:13 Visit Bonnie Barbosa CINDER DU[employer] CRANE OPERATOR [id number] [facility] [id number] Se as MATERNAL [id number] [facility] & CHILD [address] [place] [address] 2022-02-27 2022-02-27 Christine Geraldineshira [facility] [id number] Univers 00:00:00 00:00:00 Tori SPECIALTY [id number] ity of [place] [id number] [place] [id number] [address] 2021-12-07 2021-12-07 Outpatient R NOELLE [facility] [id number] Univers 10:00:00 10:32:14 PATRICIO min o [facility] 2021-12-07 2021-12-07 [facility] [id number] .[id number] Univers 10:00:00 10:32:14 Visit Patricio Schreiber [employer] CRANE OPERATOR [id number] ity of [facility] [id number] Se as MATERNAL [id number] [facility] & CHILD [address] [place] [address] 2021-12-07 2021-12-07 Outpatient R [facility] [id number] Univers 10:00:00 10:00:00 ity of [facility] 2021-09-07 2021-09-07 [facility] [id number] Univers 00:00:00 00:00:00 Patricio Ramos [employer] DU[employer] CRANE OPERATOR [id number] ity of [facility] [id number] Se as MATERNAL [id number] [facility] & CHILD [address] [place] [address] 2021-09-06 2021-09-06 Outpatient R NOELLE [facility] [id number] Univers 09:45:00 10:03:32 PATRICIO min o [facility] 2021-09-06 2021-09-06 [facility] [id number] Univers 09:45:00 10:03:32 Visit Patricio Ramos [employer] CRANE OPERATOR [id number] ity of [facility] [id number] Se as MATERNAL [id number] [facility] & CHILD [address] [place] [address] 2021-09-06 2021-09-06 Outpatient R NOELLE [facility] [id number] Univers 09:45:00 09:45:00 INOCENCIAENRIQUETAA ity o [facility] 2021-08-22 2021-08-22 Outpatient R NOELLE [facility] [id number] Univers 13:30:00 14:27:19 [facility] 2021-08-22 2021-08-22 Outpatient R NOELLE [facility] [id number] Univers 13:30:00 14:27:19 [facility] 2021-08-22 2021-08-22 Outpatient R NOELLE [facility] [id number] Univers 13:30:00 14:27:19 [facility] o [facility] 2021-08-22 2021-08-22 [facility] [id number] Univers 13:30:00 14:27:19 [facility] [employer]ER [employer] CRANE OPERATOR [id number] ity of [facility] [id number] Se as MATERNAL [id number] [facility] & CHILD [address] [place] [address] 2021-08-22 2021-08-22 Orders Doctor CORTNEY [id number] [id number] Univers 00:00:00 00:00:00 Only Unassigned, OMAR [id number] ity of [place] [facility] [id number] Se as [id number] [place] [address] Branch Results This patient has no known results.
[2022-04-17 18:14] LABS: Urine Blood 1+ (Negative); Urine Glucose Negative (Negative); Urine Protein 2+ (Negative); Urine pH 5.5 (5.0-7.0)
[2022-04-17 18:38] LABS: Absolute Lymphocytes (CBC) 1.2 K/uL (0.7-4.9); Hematocrit 32.4 % (36.0-45.0); Lymphocytes % 3.6 % (15.3-44.8); MCV 70.4 fL (80-100); MPV 7.8 fL (7.6-11.3)
[2022-04-17 18:40] LABS: Urine Bacteria 20-50 /HPF (<20); Urine Mucus Slight /HPF (None Seen); Urine RBC <5 /HPF (None Seen); Urine WBC Clump Occasional /HPF (None Seen)
--- NOTE | 2022-04-17 18:44 | RAD REPORT ---
EXAM DESCRIPTION: US - Abdomen Exam Limited - 04/17/2022 6:16 pm CLINICAL HISTORY: upper abdomen pain COMPARISON: No comparisons FINDINGS: The gallbladder demonstrates 6 mm polyp versus adherent stone. No pericholecystic fluid or gallbladder wall thickening. The common bile duct is normal measuring 4 mm. The liver demonstrates no findings of intrahepatic biliary dilatation. IMPRESSION: 6 mm polyp versus adherent stone.
[2022-04-17 18:57] LABS: Albumin 4.1 g/dL (3.4-5.0); Bilirubin Total 2.3 mg/dL (0.2-1.0); Potassium 3.6 mmol/L (3.5-5.1); Protein, Total 9.1 g/dL (6.4-8.2)
[2022-04-17] MEDS ORDERED: NA CHLORIDE 0.9% 1,000 ML ONE ×2 (19:19→20:23)
[2022-04-17] MEDS ORDERED: MORPHINE 4 MG/ML SYR ONE (19:19)
[2022-04-17] MEDS ORDERED: FAMOTIDINE 20 MG/2 ML VIAL IV ONE (19:20)
[2022-04-17] MEDS ORDERED: ONDANSETRON 4 MG/2 ML VIAL ONE ×2 (19:20→22:01)
--- NOTE | 2022-04-17 19:34 | RAD REPORT ---
EXAM DESCRIPTION: CTAbdomen Pelvis W Contrast - 04/17/2022 7:27 pm CLINICAL HISTORY: Abdominal pain. upper abdomen pain COMPARISON: Abdomen Pelvis W Contrast dated 05/20/2021; Abdomen Exam Limited dated 04/17/2022 TECHNIQUE: Biphasic CT imaging of the abdomen and pelvis was performed with 100 ml non-ionic IV cont rast. All CT scans are performed using dose optimization technique as appropriate and may include automated exposure control or mA/KV adjustment according to patient size. FINDINGS: The lung bases are clear. The liver, spleen, pancreas, adrenal glands and kidneys are within normal limits. No bowel obstruction, free air, free fluid or abscess. The appendix is normal. No evidence of signi ficant lymphadenopathy. Mild osteosclerosis. IMPRESSION: No acute intra-abdominal or pelvic finding.
--- NOTE | 2022-04-17 19:50 | EDPHYS ---
Physician Documentation [facility] Name: Abad Romero Age: 21 yrs Sex: Female : 2000 Arrival Date: 04/17/2022 Time: 17:[address] Private MD: ED Physician Matthias Lux HPI: 04/17 18:15 This 21 yrs old Black Female presents to ER via Ambulatory with complaints of Abdominal cp Pain. 18:15 The patient presents with abdominal pain in the epigastric area. Onset: The cp symptoms/episode began/occurred yesterday. 18:15 The symptoms do not radiate. Associated signs and symptoms: Pertinent positives: cp anorexia, nausea, Pertinent negatives: chest pain, constipation, diarrhea, dysuria, fever, vomiting. The symptoms are described as constant, sharp. 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 - Social history:: Smoking status: Patient denies any tobacco usage or history of. ROS: 18:20 Constitutional: Negative for body aches, chills, fever, poor PO intake. cp 18:20 Eyes: Negative for injury, pain, redness, and discharge. cp 18:20 ENT: Negative for drainage from ear(s), ear pain, sore throat, difficulty swallowing, difficulty handling secretions. 18:20 Cardiovascular: Negative for chest pain, edema, palpitations. 18:20 Respiratory: Negative for cough, shortness of breath, wheezing. 18:20 Abdomen/GI: Positive for abdominal pain, nausea, anorexia, of the epigastric area, Negative for vomiting, diarrhea, constipation. 18:20 Back: Negative for radiated pain. 18:20 : Negative for urinary symptoms, hematuria. 18:20 Neuro: Negative for altered mental status, dizziness, headache, syncope, weakness. 18:20 All other systems are negative. Exam: 18:25 Constitutional: The patient appears in no acute distress, alert, awake, cp non-diaphoretic, non-toxic, well developed, well nourished, uncomfortable. 18:25 Head/Face: Normocephalic, atraumatic. cp 18:25 Eyes: Periorbital structures: appear normal, Conjunctiva: normal, no exudate, no cp injection, Sclera: no appreciated abnormality, Lids and lashes: appear normal, bilaterally. 18:25 ENT: External ear(s): are unremarkable, Nose: is normal, Mouth: Lips: moist, Oral mucosa: pink and intact, moist, Posterior pharynx: is normal, airway is patent, no erythema, no exudate. 18:25 Neck: ROM/movement: is normal, is supple, without pain, no range of motions limitations. 18:25 Chest/axilla: Inspection: normal. 18:25 Cardiovascular: Rate: tachycardic, Rhythm: regular. 18:25 Respiratory: the patient does not display signs of respiratory distress, Respirations: normal, no use of accessory muscles, no retractions, labored breathing, is not present, Breath sounds: are clear throughout, no decreased breath sounds, no stridor, no wheezing. 18:25 Abdomen/GI: Inspection: abdomen appears normal, Bowel sounds: active, all quadrants, Palpation: soft, in all quadrants, moderate abdominal tenderness, in the epigastric area, rebound tenderness, is not appreciated, voluntary guarding, is elicited in the epigastric area. 18:25 Back: pain, is absent, ROM is normal, CVA tenderness, is absent. 18:25 Skin: no rash present. 18:25 Neuro: Orientation: to person, place \T\ time. Mentation: is normal, Motor: moves all fours, strength is normal, Sensation: is normal. Vital Signs: 17:53 BP 131 / 89; Pulse 110; Resp 16; Temp 98.6(TE); Pulse Ox 100% on R/A; Weight 54.43 kg; vg1 Height 5 ft. 4 in. (162.56 cm); Pain 8/10; 20:56 BP 126 / 73; Pulse 95; Resp 17 S; Pulse Ox 99% on R/A; lg3 17:53 Body Mass Index 20.60 (54.43 kg, 162.56 cm) vg1 MDM: 18:00 Patient medically screened. cp 18:30 Differential diagnosis: cholecystitis, Cholelithiasis, non-specific abd pain, cp pancreatitis, Peptic Ulcer Disease, Perf. Duodenal Ulcer, Perf. Gastric Ulcer, Pyelonephritis, Ureterolithiasis, urinary tract infection. 19:40 Data reviewed: vital signs, nurses notes, lab test result(s), radiologic studies, CT cp scan, ultrasound. 19:40 Consideration of Admission/Observation Patient was admitted/placed on observation. cp Management of patient was discussed with the following: Radarman: Tay Varela NP. I considered the following discharge prescriptions or medication management in the emergency department Medications were administered in the Emergency Department. See MAR. Care significantly affected by the following chronic conditions: Sickle Cell. Counseling: I had a detailed discussion with the patient and/or guardian regarding: the historical points, exam findings, and any diagnostic results supporting the discharge/admit diagnosis, lab results, radiology results, the need for further work-up and treatment in the hospital. 04/17 18:00 Order name: CBC with Diff cp 04/17 19:37 Interpretation: Normal except: WBC 32.30; HGB 10.4; HCT 32.4; MCV 70.4; MCH 22.7; RDW cp 15.4; JIMENA% 89.5; LYM% 3.6; NEUT A 28.9; MNA 2.2. 04/17 18:00 Order name: CMP; Complete Time: 19:01 cp 04/17 19:38 Interpretation: Normal except: NA 134; GLUC 109; BUN 6; AST 10; ALT 12; BILIT 2.3; TP cp 9.1; GLOB 5.0; A/G 0.8. 04/17 18:00 Order name: Lipase; Complete Time: 19:01 cp 04/17 18:00 Order name: Urine Microscopic Only; Complete Time: 18:46 cp 04/17 19:38 Interpretation: Normal except: UWBC >50; UBACT 20-50; UWBC Clump Occasional; BYST cp Occasional. 04/17 18:14 Order name: Urine Dipstick-Ancillary; Complete Time: 18:46 EDMS 04/17 18:52 Interpretation: Normal except: UKET 1+; UBLD 1+; UPROT 2+; UNIT Positive; UESTR 1+. cp 04/17 18:15 Order name: Urine --Ancillary (enter results); Complete Time: 18:46 bd 04/17 18:00 Order name: US Abdomen Limited; Complete Time: 18:46 04/17 18:46 Interpretation: Report reviewed. 04/17 18:43 Order name: Urine Culture EDWV 04/17 18:51 Order name: Lactate w/ 2H reflex if indic. 04/17 18:51 Order name: Procalcitonin 04/17 18:51 Order name: COVID-19/FLU A+B 04/17 18:51 Order name: Blood Culture Adult (2) 04/17 18:52 Order name: CT Abd/Pelvis - IV Contrast Only; Complete Time: 19:37 04/17 19:51 Order name: Manual Differential EDWV 04/17 18:00 Order name: IV Saline Lock; Complete Time: 18:46 04/17 18:00 Order name: Labs collected and sent; Complete Time: 18:46 04/17 18:00 Order name: Urine Dipstick-Ancillary (obtain specimen); Complete Time: 18:13 04/17 18:00 Order name: Urine Test (obtain specimen); Complete Time: 18:13 04/17 20:00 Order name: Chest Single View XRAY la 04/17 20:55 Order name: RAD EDWV Administered Medications: 19:15 Drug: Zofran (Ondansetron) 4 mg Route: IVP; Site: left antecubital; vg1 19:15 Drug: NS 0.9% (30 ml/kg) 30 ml/kg {Note: 1000 mL .} Route: IV; Rate: bolus; Site: left vg1 antecubital; 19:17 Drug: Pepcid (famotidine) 20 mg Route: IVP; Site: left antecubital; vg1 19:19 Not Given (Physician Discretion): NS 0.9% 1000 ml IV at 1 bolus Per protocol; 1000 mL cp bolus 19:19 Drug: morphine 4 mg Route: IVP; Infused Over: 4 mins; Site: left antecubital; vg1 20:26 Drug: NS 0.9% (30 ml/kg) 30 ml/kg Route: IV; Rate: bolus; Site: left antecubital; lg3 22:58 Follow up: Response: No adverse reaction; IV Status: Completed infusion; IV Intake: lg3 1000ml 20:29 Drug: Rocephin (cefTRIAXone) 1 grams Route: IV; Rate: calculated rate; Site: left lg3 antecubital; 22:58 Follow up: Response: No adverse reaction; IV Status: Completed infusion; IV Intake: [id number] Disposition Summary: 04/17/22 19:50 Hospitalization Ordered Hospitalization Status: Inpatient Admission cp Provider: Tay Varela cp Condition: Stable cp Problem: new cp Symptoms: have improved cp Bed/Room Type: Standard cp Location: Telemetry/MedSurg (Inpatient)(04/18/22 00:28) Room Assignment: 429(04/18/22 00:28) Diagnosis - UTI/ Urinary tract infection, site not specified cp - Sepsis, unspecified organism cp Forms: - Medication Reconciliation Form cp - SBAR form cp Addendum: 04/20/2022 09:44 Co-signature as Attending Physician, Matthias Lux MD I reviewed the patient's care r n provided by the Advanced Practice Provider and agree with the diagnosis and treatment plan. Signatures: Dispatcher [employer] EDGenna De La Fuente RN RN mw Nieto, Roman, MD MD rn Attema, Lee, FLOOR AND WALL APPLIER LIQUID-C FLOOR AND WALL APPLIER LIQUID-Cla1 Jimmy Burrell PA PA cp Sandi Cristina RN RN lg3 Anai Cerda RN RN vg1 Corrections: (The following items were deleted from the chart) 04/17 19:57 19:50 Telemetry/MedSurg (Inpatient) [facility] 19:57 19:50 cp 04/18 00:28 04/17 19:57 RUST ER HOLD mw 04/18 00:28 04/17 19:57 ERHOLD- mw 04/18 20:05 04/17 18:15 Onset: The symptoms/episode began/occurred this morning, cp cp
--- NOTE | 2022-04-17 19:50 | ER ---
Nurse's Notes [facility] Name: Abad Romero Age: 21 yrs Sex: Female : 2000 Arrival Date: 04/17/2022 Time: 17:[address] Private MD: Diagnosis: UTI/ Urinary tract infection, site not specified;Sepsis, unspecified organism Presentation: 04/17 17:53 Chief complaint: Patient states: Epigastric pain since yesterday, states pain is sharp, vg1 8/10; denies NVD. Is able to tolerate fluids but is "scared to eat bc I dont want to throw up". Coronavirus screen: Vaccine status: Patient reports receiving the 2nd dose of the covid vaccine. Client denies travel out of the [place] in the last 14 days. Ebola Screen: Patient negative for fever greater than or equal to 101.5 degrees Fahrenheit, and additional compatible Ebola Virus Disease symptoms Patient denies exposure to infectious person. Initial Sepsis Screen: Does the patient meet any 2 criteria? HR > 90 bpm. No. Patient's initial sepsis screen is negative. Does the patient have a suspected source of infection? No. Patient's initial sepsis screen is negative. Risk Assessment: Do you want to hurt yourself or someone else? Patient reports no desire to harm self or others. Onset of symptoms was April 16, 2022. 17:53 Method Of Arrival: Ambulatory vg1 17:53 Acuity: ROLAND 3 vg1 Triage Assessment: 17:57 General: Appears uncomfortable, Behavior is calm, cooperative. Pain: Complains of pain vg1 in epigastric area Pain currently is 8 out of 10 on a pain scale. Pain began 1 day ago. Cardiovascular: Patient's skin is warm and dry. GI: Abdomen is flat, Reports nausea, Patient currently denies diarrhea, vomiting. MEDICAL ONCOLOGY PHYSICIAN: 17:57 LMP N/A - control method vg1 Historical: - Allergies: 17:57 No Known Allergies; vg1 - Home Meds: 17:57 Folic Acid Oral [Active]; vg1 - PMHx: 17:57 Sickle Cell; vg1 - PSHx: 17:57 None; vg1 - Immunization history:: Client reports receiving the 2nd dose of the Covid vaccine. - Social history:: Smoking status: Patient denies any tobacco usage or history of. Screenin:56 [facility] ED Fall Risk Assessment (Adult) History of falling in the last 3 months, lg3 including since admission No falls in past 3 months (0 pts). Abuse screen: Denies threats or abuse. Denies injuries from another. Nutritional screening: No deficits noted. Tuberculosis screening: No symptoms or risk factors identified. Assessment: 20:56 General: Appears in no apparent distress. comfortable, Behavior is calm, cooperative. lg3 Pain: Complains of pain in abdomen and epigastric area Noted to be guarding, resistant to movement. Neuro: No deficits noted. Carver Agitation-Sedation Scale (RASS): 0 - Alert and Calm Level of Consciousness is awake, alert, obeys commands, Oriented to person, place, time, situation. Cardiovascular: No deficits noted. Denies chest pain, shortness of breath, Capillary refill < 3 seconds Clubbing of nail beds is absent JVD is absent Patient's skin is warm and dry. Respiratory: No deficits noted. Airway is patent Trachea midline Respiratory effort is even, unlabored, Respiratory pattern is regular, symmetrical. GI: Bowel sounds present X 4 quads. Abd is soft X 4 quads Abdomen is tender to palpation Reports upper abdominal pain, epigastric pain, intolerance of fluids, intolerance of food, nausea, vomiting. : No deficits noted. EENT: No deficits noted. No signs and/or symptoms were reported regarding the EENT system. Derm: No deficits noted. No signs and/or symptoms reported regarding the dermatologic system. Skin is intact, is healthy with good turgor, Skin is dry, Skin is normal. Musculoskeletal: No deficits noted. No signs and/or symptoms reported regarding the musculoskeletal system. Circulation, motion, and sensation intact. Range of motion: intact in all extremities. Vital Signs: 17:53 BP 131 / 89; Pulse 110; Resp 16; Temp 98.6(TE); Pulse Ox 100% on R/A; Weight 54.43 kg; vg1 Height 5 ft. 4 in. (162.56 cm); Pain 8/10; 20:56 BP 126 / 73; Pulse 95; Resp 17 S; Pulse Ox 99% on R/A; lg3 17:53 Body Mass Index 20.60 (54.43 kg, 162.56 cm) vg1 ED Course: 17:04 Patient arrived in ED. am2 17:10 Jimmy Burrell PA is PHCP. cp 17:10 Matthias Lux MD is Attending Physician. cp 17:57 Triage completed. vg1 17:57 Arm band placed on. vg1 18:18 US Abdomen Limited In Process Unspecified. EDMS 19:29 CT Abd/Pelvis - IV Contrast Only In Process Unspecified. EDMS 19:49 Tay Varela FNP-C is Hospitalizing Provider. cp 20:56 Patient has correct armband on for positive identification. Placed in gown. Bed in low lg3 position. Call light in reach. Side rails up X 1. Client placed on continuous cardiac and pulse oximetry monitoring. NIBP monitoring applied. tactical debriefer officer on. Door closed. Noise minimized. Warm blanket given. Family accompanied patient. 20:56 Inserted saline lock: 22 gauge in left antecubital area, using aseptic technique. lg3 21:06 No provider procedures requiring assistance completed. Patient admitted, IV remains in lg3 place. 22:58 Sandi Cristina, RN is Primary Nurse. lg3 Administered Medications: 19:15 Drug: Zofran (Ondansetron) 4 mg Route: IVP; Site: left antecubital; vg1 19:15 Drug: NS 0.9% (30 ml/kg) 30 ml/kg {Note: 1000 mL .} Route: IV; Rate: bolus; Site: left vg1 antecubital; 19:17 Drug: Pepcid (famotidine) 20 mg Route: IVP; Site: left antecubital; vg1 19:19 Not Given (Physician Discretion): NS 0.9% 1000 ml IV at 1 bolus Per protocol; 1000 mL cp bolus 19:19 Drug: morphine 4 mg Route: IVP; Infused Over: 4 mins; Site: left antecubital; vg1 20:26 Drug: NS 0.9% (30 ml/kg) 30 ml/kg Route: IV; Rate: bolus; Site: left antecubital; lg3 22:58 Follow up: Response: No adverse reaction; IV Status: Completed infusion; IV Intake: lg3 1000ml 20:29 Drug: Rocephin (cefTRIAXone) 1 grams Route: IV; Rate: calculated rate; Site: left lg3 antecubital; 22:58 Follow up: Response: No adverse reaction; IV Status: Completed infusion; IV Intake: 58dual1 Medication: 20:56 VIS not applicable for this client. lg3 Intake: 22:58 IV: 1000ml; Total: 1000ml. lg3 22:58 IV: 10ml; Total: 1010ml. lg3 Outcome: 19:50 Decision to Hospitalize by Provider. cp 21:06 Admitted to ER Hold. Please see [facility] for further documentation. lg3 21:06 Condition: stable 21:06 Instructed on the need for admit. 04/18 01:01 Patient left the ED. lg3 Signatures: Dispatcher [employer] EDMS Jimmy Burrell PA PA cp Sue Figueredo Lacie, RN RN lg3 Anai Cerda RN RN vg1
[2022-04-17 19:51] LABS: Blood Morphology Comment NOT SEEN (NOT SEEN); Platelet Estimate ADEQ; Toxic Granulation 1+
[2022-04-17 20:09] LABS: SARS-COV-2 RT PCR NEGATIVE (NEGATIVE)
--- NOTE | 2022-04-17 20:10 | P.HP ---
Certification for Inpatient Patient admitted to: Inpatient With expected LOS: >2 Midnights Patient will require the following post-hospital care: None Practitioner: I am a practitioner with admitting privileges, knowledge of patient current condition, hospital course, and medical plan of care. Services: Services provided to patient in accordance with Admission requirements found in Title 42 Section 412.3 of the Code of Federal Regulations Patient History Date of Service: 04/17/22 Reason for admission: UTI, sepsis History of Present Illness: 21-year-old female with history of sickle cell anemia presents to the emergency department with 1 day of epigastric pain. She denies any nausea, vomiting, diarrhea. She was evaluated in the emergency department labs are significant for marked leukocytosis white blood cell count 32.3, urinalysis shows 1+ leuk esterase, nitrate positive, 1+ blood, 1+ ketones, urine microscopic with 20-50 bacteria present abdominal ultrasound was performed which showed 6 mm polyp versus adherent stone, no pericholecystic fluid or gallbladder wall thickening, CBD is normal measuring 4 mm. No intrahepatic biliary dilatation. CT abdomen pelvis was then performed which was negative for any acute intra-abdominal or pelvic findings. Patient with history of pyelonephritis/bacteremia with pansensitive E. coli approximately 1 year ago. She was given IV Rocephin in the ED, ED wishes to admit for sepsis, UTI, epigastric pain. Allergies No Known Allergies Allergy (Verified 05/20/21 22:48) Home Medications: Folic Acid 1 mg PO DAILY #30 tablet 05/22/21 Hydrocodone 5/APAP 325 [[place] 5/325*] 1 tab PO Q8HP PRN #14 tab 05/22/21 levoFLOXacin [Levaquin] 500 mg PO DAILY #7 tab 05/22/21 - Past Medical/Surgical History Diabetic: No -: Sickle cell disease -: seizures ( 6-7 years old) -: Pyelonephritis/bacteremia -: None Psychosocial/ Personal History: Patient lives at home with family, works at [employer] - Family History Mother -: Cancer Father -: Cancer - Social History Smoking Status: Never smoker Alcohol use: No CD- Drugs: No Caffeine use: No Place of Residence: Home Review of Systems 10-point ROS is otherwise unremarkable Gastrointestinal: Abdominal Pain Physical Examination - Physical Exam General: Alert, In no apparent distress, Oriented x3 HEENT: Atraumatic, PERRLA, Mucous membr. moist/pink, EOMI, Sclerae nonicteric Neck: Supple, 2+ carotid pulse no bruit, No LAD, Without JVD or thyroid abnormality Respiratory: Clear to auscultation bilaterally, Normal air movement Cardiovascular: Regular rate/rhythm, Normal S1 S2 Gastrointestinal: Normal bowel sounds, Tenderness (Mild epigastric tenderness) Musculoskeletal: No tenderness Integumentary: No rashes Neurological: Normal gait, Normal speech, Normal strength at 5/5 x4 extr, Normal tone, Normal affect Lymphatics: No axilla or inguinal lymphadenopathy - Studies Laboratory Data (last 24 hrs) 04/17/22 18:30: Sodium 134 L, Potassium 3.6, BUN 6 L, Creatinine 0.62, Glucose 109 H, Total Bilirubin 2.3 H, AST 10 L, ALT 12 L, Alkaline Phosphatase 79, Lipase 149 04/17/22 18:30: WBC 32.30 H*, Hgb 10.4 L, Hct 32.4 L, Plt Count 217 Assessment and Plan - Plan Assessment: Sepsis secondary to UTI Epigastric pain Sickle cell anemia Plan: Sepsis secondary to UTI: Blood and urine cultures obtained, continue with IV Rocephin, previous urine culture reviewed with pansensitive E. coli. Epigastric pain: Very mild epigastric tenderness noted, lipase negative, abdominal ultrasound with a 6 mm polyp versus adherent stone without signs of acute cholecystitis. N.p.o. with serial abdominal exams. We will repeat CMP/lipase in a.m. Sickle cell anemia: Stable, continue home meds when appropriate. DVT PPX: SCD Code status: Full Discharge Plan: Home Plan to discharge in: 48 Hours - Advance Directives Does patient have a Living Will: No Does patient have a Durable POA for Healthcare: No - Code Status/Comfort Care Code Status Assessed: Yes (Full code) Critical Care: No Time Spent Managing Pts Care (In Minutes): 55
[2022-04-17] MEDS ORDERED: CEFTRIAXONE 1000 MG/VIAL ONE (20:23)
--- NOTE | 2022-04-17 20:53 | RAD REPORT ---
EXAM DESCRIPTION: RAD - Chest Single View - 04/17/2022 8:46 pm CLINICAL HISTORY: Epigastric pain, sepsis Chest pain. COMPARISON: Chest Single View dated 05/20/2021; Abdomen Exam Limited dated 04/17/2022 FINDINGS: Portable technique limits examination quality. The lungs are underinflated resulting in vascular crowding. The heart is normal in size. No displaced fractures. IMPRESSION: No acute intrathoracic process suspected.
[2022-04-17] MEDS: Ringers Lactate 1,000 ML IV SCH (21:28)
[2022-04-17] MEDS ORDERED: Ringers Lactate 1,000 ML IV ONE (21:34)
[2022-04-17] MEDS ORDERED: MORPHINE 2 MG/ML SYR ONE (22:01)
[2022-04-17] MEDS: MORPHINE 2 MG/ML SYR IV PRN (22:08)
[2022-04-17] MEDS: ONDANSETRON 4 MG/2 ML VIAL IV PRN (22:09)
[2022-04-17 23:41] VITALS: BMI 20.5
[2022-04-18 04:00] LABS: Bilirubin Total 1.8 mg/dL (0.2-1.0); Potassium 3.6 mmol/L (3.5-5.1); Protein, Total 7.2 g/dL (6.4-8.2)
[2022-04-18 04:05] LABS: Absolute Lymphocytes (CBC) 1.4 K/uL (0.7-4.9); Hematocrit 27.7 % (36.0-45.0); Lymphocytes % 5.7 % (15.3-44.8); MCV 70.3 fL (80-100); MPV 8.3 fL (7.6-11.3); RBC Red Blood Cell Count 3.94 M/uL (3.86-4.86)
[2022-04-18] MEDS: Ringers Lactate 1,000 ML IV SCH ×3 (05:28→21:28)
--- NOTE | 2022-04-18 07:33 | P.PN ---
Date of Service: 04/18/22 Subjective: slight improvement in abd discomfort tolerated some clear liquids this morning scheduled for HIDA no new/worsening symptoms ROS: 10 point ROS as noted above, otherwise negative Physical exam GEN: Alert, oriented, NAD HEENT: Normal conjunctiva, sclera anicteric CV: Regular rate and rhythm, no edema Pulm: Nonlabored respirations on room air ABD: Soft, mild tenderness in RUQ/epigastrium Neuro: Normal speech, normal affect Problem List Sepsis secondary to UTI, possible cholecystitis Epigastric pain Sickle cell anemia sepsis epigastric pain secondary to UTI, possible cholecystitis +bacteruria/pyuria stone vs polyp noted on imaging in gallbladder - 6mm on U/S Dr. Mayberry - general surgery consulted HIDA ordered continue empiric antibiotics NPO after midnight for possible surgery tomorrow continue IVF Code: full Dispo: home, ~2-3 days
[2022-04-18] MEDS ORDERED: CEFTRIAXONE 1000 MG/VIAL ONE (07:39)
[2022-04-18] MEDS ORDERED: NA CHLORIDE 0.9% 50 ML ONE (07:41)
[2022-04-18] MEDS: CEFTRIAXONE 1,000 MG in NA CHLORIDE 0.9% 50 ML IVPB SCH (07:55)
[2022-04-18] MEDS ORDERED: INFLUENZA VACCINE (for 6+ mo) 0.5 ML DOSE IMVAC ONE (08:00)
[2022-04-18] MEDS ORDERED: ENOXAPARIN 40 MG/0.4 ML SQ SCH (09:00)
[2022-04-18] MEDS: MORPHINE 2 MG/ML SYR IV PRN ×2 (15:34→20:50)
--- NOTE | 2022-04-18 15:41 | RAD REPORT ---
EXAM DESCRIPTION: NM - Hepatobiliary System Imagin - 04/18/2022 3:15 pm CLINICAL HISTORY: Abdominal pain TECHNIQUE: The patient was administered 6.2 millicuries technetium Choletec and images of the abdome n obtained for 79 minutes. FINDINGS: Liver demonstrates prompt radiotracer uptake. Prompt uptake within bowel is seen. No radiotracer activity seen within the gallbladder. 79 minutes into the exam the patient complained of severe abdominal pain and the examination was ende d. No additional imaging obtained IMPRESSION: Assessment for acute cholecystitis could not be obtained as the exam was terminated mirella y. Also biliary dyskinesis could not be determined
[2022-04-18] MEDS ORDERED: SODIUM CHLORIDE 0.9% 10ML INJ IV PRN (15:58)
[2022-04-18] MEDS: ONDANSETRON 4 MG/2 ML VIAL IV PRN (20:50)
[2022-04-19 03:44] LABS: Absolute Lymphocytes (CBC) 1.8 K/uL (0.7-4.9); Hematocrit 29.2 % (36.0-45.0); Lymphocytes % 8.9 % (15.3-44.8); MCV 69.8 fL (80-100); MPV 8.3 fL (7.6-11.3); RBC Red Blood Cell Count 4.18 M/uL (3.86-4.86)
[2022-04-19 03:57] LABS: Bilirubin Total 1.8 mg/dL (0.2-1.0); Potassium 3.6 mmol/L (3.5-5.1); Protein, Total 7.5 g/dL (6.4-8.2)
[2022-04-19] MEDS: Ringers Lactate 1,000 ML IV SCH ×3 (05:28→21:28)
[2022-04-19] MEDS: PANTOPRAZOLE 40 MG INJ IVP SCH (08:36)
[2022-04-19] MEDS: ENOXAPARIN 40 MG/0.4 ML SQ SCH (08:36)
[2022-04-19] MEDS: CEFTRIAXONE 1,000 MG in NA CHLORIDE 0.9% 50 ML IVPB SCH (08:37)
--- NOTE | 2022-04-19 09:59 | RAD REPORT ---
EXAM DESCRIPTION: US - Abdomen Exam Limited - 04/19/2022 9:39 am CLINICAL HISTORY: look at gallbladder COMPARISON: Abdomen Pelvis W Contrast dated 04/17/2022; Hepatobiliary System Imagin dated 04/18/2022 FINDINGS: A single mobile gallstone is identified with a small amount of sludge within the lumen. No gallbladder wall mass or polyp. There is no wall thickening or pericholecystic fluid. Biliary tree was not optimally visualized but no dilatation is seen. Common bile duct is 2-3 mm where visualized. IMPRESSION: Single stone cholelithiasis with small amount of sludge. No acute cholecystitis findings . No abnormal biliary tree dilatation.
--- NOTE | 2022-04-19 14:40 | CON ---
Reason For Consultation: This is a 21-year-old female, I was consulted for bacteremia and urosepsis. History Of Present Illness: Patient is a 21-year-old female coming in with significant past medical history of sickle cell anemia and urinary tract infection about a year ago. She denies any nausea, v omiting, chest pain, abdominal pain, constipation, or diarrhea. Her abdominal discomfort which she c jaswinder in initially with has subsided significantly. She is showing that she has urine culture showing E coli and blood cultures are growing gram-negative rods, most likely E coli. Currently, on Rocephin . Denies any other discomfort other than epigastric pain. Patient is supposed to go for laparoscopi c cholecystectomy later today, and she is n.p.o. for that. Past Medical History: As per HPI. Social History: Nonsmoker. Nondrinker. Family History: Noncontributory. Medications: Rocephin. See MAR for other medications. Allergies: NO KNOWN DRUG ALLERGIES. Review of Systems: A 10-point review was performed. Physical Examination: General: This is a 21-year-old female lying in bed. Mom is at the bedside, not in any acute cardiop ulmonary distress. Vital Signs: Temperature 98, pulse 84, respirations 17, blood pressure 111/56. HEENT: Unremarkable. Neck: Supple. Lungs: Basal crackles. Heart: S1, S2. Regular. Abdomen: Mid epigastric discomfort, otherwise unremarkable. Extremities: No edema. Laboratory Data: Shows WBC 20.2, down from 32,000, hemoglobin 9.5, platelets are 193. Chemistry ayush ws BUN of 5, creatinine 0.4. Her albumin level is 3. Micro data: Blood cultures, gram-negative ubaldo s. Urine cultures, E coli. Abdominal ultrasound shows single stone cholelithiasis with small amount of sludge, no acute cholecystitis finding. Hepatobiliary scan shows patient has acute cholecystitis . Chest x-ray, no acute intrathoracic process. CT abdomen and pelvis done on April 17 shows patie nt has liver, spleen, pancreas and adrenal glands, kidneys within normal limit. Assessment And Plan: 21-year-old female with significant history of sickle cell anemia and previous urinary tract infection and pyelonephritis, coming in with urinary tract infection, urosepsis with le ukocytosis of 30,000, responding well to Rocephin. Bacteremia, we will recommend a total course of 1 4 days of antibiotics, can be switched to oral once patient is stable. Also recommend to add probiot ic if having any challenges with diarrhea. We will follow the patient closely. No other recommendat ion at this time. Thank you, Dr. Lxu, for consult. NF/MODL Voice ID: [id number] Report ID: [id number]
--- NOTE | 2022-04-19 23:07 | P.PN ---
Date of Service: 04/19/22 Subjective: slight improvement in abd discomfort had severe pain and nausea with HIDA - in RUQ +Bacteremia no new/worsening symptoms ROS: 10 point ROS as noted above, otherwise negative Physical exam GEN: Alert, oriented, NAD HEENT: Normal conjunctiva, sclera anicteric CV: Regular rate and rhythm, no edema Pulm: Nonlabored respirations on room air ABD: Soft, mild tenderness in RUQ/epigastrium Neuro: Normal speech, normal affect Problem List Sepsis secondary to UTI, possible cholecystitis Epigastric pain Sickle cell anemia sepsis epigastric pain secondary to UTI, possible cholecystitis vs biliary dyskinesia / biliary colic +bacteruria/pyuria +GNR bacteremia awaiting sensitivities continue empiric rocephin ID consulted stone vs polyp noted on imaging in gallbladder - 6mm on U/S Dr. Mayberry - general surgery consulted concern for acute cholecystitis based off imaging, however not 100% clear RUQ U/S ordered to be obtained again to re-eval gallbladder continue IVF Code: full Dispo: home, ~2 days
[2022-04-20] MEDS: Ringers Lactate 1,000 ML IV SCH ×3 (03:39→13:30)
[2022-04-20 06:44] LABS: Absolute Lymphocytes (CBC) 1.2 K/uL (0.7-4.9); Hematocrit 26.6 % (36.0-45.0); Lymphocytes % 11.4 % (15.3-44.8); MCV 69.3 fL (80-100); RBC Red Blood Cell Count 3.84 M/uL (3.86-4.86)
[2022-04-20 07:05] LABS: Albumin 2.8 g/dL (3.4-5.0); Bilirubin Total 1.3 mg/dL (0.2-1.0); Potassium 3.4 mmol/L (3.5-5.1)
[2022-04-20] MEDS: CEFTRIAXONE 1,000 MG in NA CHLORIDE 0.9% 50 ML IVPB SCH (07:55)
[2022-04-20] MEDS: PANTOPRAZOLE 40 MG INJ IVP SCH (07:55)
[2022-04-20] MEDS: ENOXAPARIN 40 MG/0.4 ML SQ SCH (08:00)
[2022-04-20 08:13] LABS: Anisocytosis 2+; Blood Morphology Comment NOTED (NOT SEEN); Hypochromasia 1+; Platelet Estimate ADEQ; Platelets, Giant FEW; Stomatocytes 1+; Target Cells 1+; White Blood Cell Scan OK (OK)
[2022-04-20] MEDS ORDERED: propofoL 200 MG/20 ML VIAL IV ONE (08:15)
[2022-04-20] MEDS ORDERED: dexAMETHasone 10 MG/ML VIAL ONE (08:16)
[2022-04-20] MEDS ORDERED: KETOROLAC 30 MG/ML INJ ONE (08:16)
[2022-04-20] MEDS ORDERED: MIDAZOLAM HCL 2 MG/2 ML INJ ONE (08:16)
[2022-04-20] MEDS ORDERED: FENTANYL CITR 100 MCG/2 ML ONE ×2 (08:16→09:16)
[2022-04-20] MEDS ORDERED: ROCURONIUM 50 MG/5 ML VIAL IV ONE (08:16)
[2022-04-20] MEDS ORDERED: BUPIVACAINE 0.25% PF 30 ML VIAL ONE (08:18)
[2022-04-20] MEDS ORDERED: ONDANSETRON 4 MG/2 ML VIAL ONE (08:23)
[2022-04-20] MEDS ORDERED: LIDOCAINE 2% MPF 5 ML VIAL ONE (08:23)
[2022-04-20] MEDS ORDERED: Ringers Lactate 1,000 ML IV ONE (08:49)
[2022-04-20] MEDS: Levofloxacin500mg IV 500 MG/100 ML BAG IV ONE ×2 (09:21→09:30)
[2022-04-20] MEDS ORDERED: ESMOLOL HCL 10 ML IV ONE (09:31)
--- NOTE | 2022-04-20 09:57 | P.OP ---
Preoperative diagnosis: Chronic Cholecystitis / Biliary Dyskinesia Postoperative diagnosis: Chronic Cholecystitis / Biliary Dyskinesia Primary procedure: Laparoscopic Cholecystectomy with ICG Cholangiography Anesthesia: GETA + Local Estimated blood loss: <10cc Specimen: Gallbladder Findings: Significant adhesions between stomach, duodenum, colon to gallbladder Complications: None Transferred to: Recovery Room Condition: Good
[2022-04-20 10:24] VITALS: O2SAT 100
[2022-04-20] MEDS: MORPHINE 2 MG/ML SYR IV PRN ×2 (11:21→17:08)
--- NOTE | 2022-04-20 14:47 | PN ---
Subjective: The patient lying in bed. Denies any chest pain, abdominal pain, constipation, or diarr hea. Objective: Vital Signs: Temperature 97, pulse 100, respirations 24, blood pressure 129/81. Lungs: Clear to auscultation. Heart: S1, S2 regular. Abdomen: Soft, nontender. Bowel sounds present. Extremities: No edema. Laboratory Data: Shows WBC down to 10.7, hemoglobin 8.9, platelets are 216. Chemistry shows BUN of 5, creatinine 0.4. Albumin level is 2.8. Blood cultures and urine cultures are both growing E coli. Assessment And Plan: The patient is currently being treated with Rocephin. The patient also had lap aroscopic cholecystectomy earlier for cholecystitis. We will follow the patient closely. No other r ecommendation. Continue antibiotic for a total of 2 weeks. NF/MODL Voice ID: [id number] Report ID: [id number]
--- NOTE | 2022-04-20 20:44 | OP ---
Date of Procedure: 04/20/2022 Surgeon: Samuel Mayberry MD, Preoperative Diagnosis: Chronic cholecystitis/biliary dyskinesia. Postoperative Diagnosis: Chronic cholecystitis/biliary dyskinesia. Procedure: Laparoscopic cholecystectomy with indocyanine green cholangiography. Anesthesia: General endotracheal plus local with 0.25% Marcaine. Estimated Blood Loss: Less than 10 cc. Specimen: Gallbladder. Findings: Significant adhesions between the stomach, duodenum, and colon to the gallbladder. These were thick fibrous adhesions. Complications: None. Disposition: Patient was transferred to recovery room in good condition. Procedure In Detail: After informed consent was obtained, patient brought to the operating room, pre pped in the usual sterile fashion. After adequate anesthesia was achieved, a supraumbilical area was anesthetized with 0.25% Marcaine, sharply incised. A 5 mm trocar was placed under direct visualizat ion without complication. Insufflation was obtained to 15 mmHg at this time. There was no injury t o vital structures upon entry into the abdomen. 2 additional trocars were placed, 1 in the epigastri um, 1 in the right upper quadrant. Both of these similarly anesthetized, sharply incised, 5 mm troca rs were placed under direct vision without complication. The umbilical trocar was then upsized to a 12 mm under direct visualization without complication. I then placed the patient in the head up righ t-side up position. Ratcheted grasper was used to grasp the patient's gallbladder. Significant adhe sions were noted between the transverse colon near the hepatic flexure as well as the stomach and duo denum. All had significant thick fibrous adhesions, which caused significant tenting of the foregut structures and colon as described. These were taken down using a combination of blunt dissection vincent orosco followed by electrocautery to dissect these structures free. Ultimately, I dissected down to the Bina pouch of the gallbladder, dissecting out and identifying 2 structures and both confirmed with indocyanine green cholangiography. 2 structures were identified. They were skeletonized and i dentified as both the cystic duct and cystic artery. Critical view of safety was obtained at this po int. Double titanium clips doubly on the proximal side and singly on the distal side of both cystic duct and cystic artery. At this point, the structures were ligated with Endo Toya. The gallbladde r was then removed from the hepatic fossa, placed in an EndoCatch bag, removed through the umbilical trocar. There was minimal bile spillage throughout the procedure. The abdomen was then reinsufflate d and the area was copiously irrigated and suctioned out until completely dry. No additional hemosta tic was required. The clips were found to be in good anatomic position without any leakage of blood or bile. At this point, patient was positioned back in neutral position. Remaining effluent was suc tioned out, once again it was clear. The umbilical trocar site was then closed using a Steve suture passer. The abdomen was then completely desufflated under direct vision without complication. All incisions were then copiously irrigated and closed with a 4-0 Monocryl fashion and Dermabond was plac ed over top. Patient tolerated the procedure well without evidence of complication and transferred t o PACU in good condition. All counts were correct at the end of the case. RIA/CARLO Voice ID: [id number] Report ID: [id number]
[2022-04-20] MEDS ORDERED: Ringers Lactate 1,000 ML IV SCH (21:06)
[2022-04-20] MEDS ORDERED: HYDROCODONE/APAP 5/325 MG TAB PO PRN (21:07)
--- NOTE | 2022-04-20 21:11 | P.PN ---
Date of Service: 04/20/22 Subjective: s/p lap panfilo doing ok, no nausea/vomiting pain at incisions ROS: 10 point ROS as noted above, otherwise negative Physical exam GEN: Alert, oriented, NAD HEENT: Normal conjunctiva, sclera anicteric CV: Regular rate and rhythm, no edema Pulm: Nonlabored respirations on room air ABD: Soft, mild tenderness in RUQ/epigastrium Neuro: Normal speech, normal affect Problem List Sepsis secondary to UTI, and cholecystitis Epigastric pain Sickle cell anemia sepsis epigastric pain/RUQ secondary to cholecystitis secondary to UTI, cholecystitis +bacteruria/pyuria +GNR bacteremia, e.coli change to levaquin; will need 14days total ID consulted stone vs polyp noted on imaging in gallbladder - 6mm on U/S Dr. Mayberry - general surgery consulted s/p lap panfilo, significant inflammation noted advance diet as tolerated incentive spirometer continue IVF Code: full Dispo: home, ~1 day
[2022-04-21 04:03] LABS: Absolute Lymphocytes (CBC) 1.5 K/uL (0.7-4.9); Hematocrit 26.9 % (36.0-45.0); Lymphocytes % 11.6 % (15.3-44.8); MCV 69.3 fL (80-100); MPV 8.2 fL (7.6-11.3); RBC Red Blood Cell Count 3.89 M/uL (3.86-4.86)
[2022-04-21 04:27] LABS: Albumin 2.9 g/dL (3.4-5.0); Bilirubin Total 1.2 mg/dL (0.2-1.0); Potassium 3.7 mmol/L (3.5-5.1); Protein, Total 7.1 g/dL (6.4-8.2)
[2022-04-21 04:38] VITALS: BP 111/64
[2022-04-21 08:19] VITALS: TEMP 98
[2022-04-21] MEDS: ENOXAPARIN 40 MG/0.4 ML SQ SCH (09:00)
[2022-04-21] MEDS ORDERED: Levofloxacin 750mg IV 750 MG/150 ML BAG IV SCH (09:00)
[2022-04-21] MEDS: PANTOPRAZOLE 40 MG INJ IVP SCH (09:13)
== END 2022-04-21 11:45 | disposition home or self-care (01) | DRG 854 ==
LOC: ER 16:55 → ERHOLD 20:01 → 4TH 04-18 00:34
PROVIDERS: ADMIT Hospitalist; ATTEND Hospitalist
PROC: BF121ZZ Fluoroscopy of Gallbladder using Low Osmolar Contrast (ICD-10-PCS; 2022-04-20)
PROC: 0FT44ZZ Resection of Gallbladder, Percutaneous Endoscopic Approach (ICD-10-PCS; principal; 2022-04-20 15:15)
DX: A41.51 Sepsis due to Escherichia coli [E. coli] (principal); N39.0 Urinary tract infection, site not specified; D57.1 Sickle-cell disease without crisis; K81.1 Chronic cholecystitis; K82.8 Other specified diseases of gallbladder; Z79.899 Other long term (current) drug therapy; Z20.822 Contact with and (suspected) exposure to COVID-19
CPT/HCPCS: 0240U; 36415; 71045; 74177; 76705; 78226; 80053; 81003; 81015; 81025; 83605; 83690; 84145; 85025; 85044; 87040; 87077; 87086; 87088; 87186; 87205; 88304; 94010; 96365; 96366; 96375; 99285; A9537; C9113; J1100; J1650; J2001; J2250; J2270; J2405; J2704; J3010; J7030; J7120; Q9967

== ENCOUNTER 2024-07-16 21:08 | Emergency (ER) | payer OTHER ==
--- OUTSIDE RECORDS SUMMARY | 2024-07-16 21:11 | XMS REPORT | Continuity of Care Document ---
Author Name Unknown Address [address] [facility] [address] [place] [address] 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, type S beta-plus thalassemi a Disease Active 05-27 00:00: 00 [facility] Other sickle-john l disease without crisis Other sickle-john l disease without crisis Disease Active 2012-03 00:00: 00 [facility] Allergies, Adverse Reactions, Alerts Allergy Name Allergy Type Status Severity Reaction(s) Onset Date Inactive Date Treating Clinician Comments Source NO KNOWN ALLERGIE S Drug Class Active [facility] Social History Social Habit Start Date Stop Date Quantity Comments Source Gender identity [facility] Sexual orientation U [facility] Alcohol intake 2022-08-16 00:00:00 2022-08-16 00:00:00 Ex-drinker (finding) [facility] Exposure to SARS-CoV-2 (event) 2022-08-04 00:00:00 2022-08-14 05:21:00 Not sure [facility] Tobacco use and exposure 2022-05-24 00:00:00 2022-05-24 00:00:00 Smokeless tobacco non-user [facility] History of Social function 2022-05-24 00:00:00 2022-05-24 00:00:00 [facility] Sex Assigned At 2000 00:00:00 2000 00:00:00 [facility] Smoking Status Start Date Stop Date Source Never smoked tobacco [facility] Medications Ordered Medication Name Filled Medication Name Start Date Stop Date Current Medication? Ordering Clinician Indication Dosage Frequency Signature (SIG) Comments Components Source medroxyPROG ESTERone (DEPO-PROVE RA) syringe 150 mg 08-16 15:45: 00 07-17 15:44 :00 No [id number] 150mg Univer s [facility] medroxyPROG ESTERone (DEPO-PROVE RA) syringe 150 mg 2021-03 16:45: 00 05-24 15:20 :00 No [id number] 150mg 150 mg, Intramuscu lar, [id number], 2 doses, First dose on Francia 03/01/22 at 1045, Last dose on Francia 05/24/22 at 1045, Routine [facility] medroxyPROG ESTERone (DEPO-PROVE RA) syringe 150 mg 12-07 16:30: 00 12-07 15:37 :00 No [id number] 150mg [facility] medroxyPROG ESTERone (DEPO-PROVE RA) injection 150 mg 09-06 15:00: 00 08-08 14:59 :00 No [id number] 150mg [facility] foLIC acid 1 mg tablet 2019-03 00:00: 00 Yes [id number] 1mg Take 1 tablet by mouth daily. [facility] Vital Signs Vital Name Observation Time Observation Value Comments S ource Systolic blood pressure 2022-11-16 14:00:00 125 mm[Hg] [facility] Diastolic blood pressure 2022-11-16 14:00:00 77 mm[Hg] [facility] Heart rate 2022-11-16 14:00:00 70 /min [facility] Body temperature 2022-11-16 14:00:00 35.94 John [facility] Respiratory rate 2022-11-16 14:00:00 18 /min [facility] Body height 2022-11-16 14:00:00 160 cm [facility] Body weight 2022-11-16 14:00:00 63.64 kg [facility] BMI 2022-11-16 14:00:00 24.85 kg/m2 [facility] Diastolic blood pressure 2022-08-16 14:37:00 81 mm[Hg] [facility] Heart rate 2022-08-16 14:37:00 81 /min [facility] Body temperature 2022-08-16 14:37:00 36.33 John [facility] Respiratory rate 2022-08-16 14:37:00 18 /min [facility] Body height 2022-08-16 14:37:00 162.6 cm [facility] Body weight 2022-08-16 14:37:00 62.869 kg [facility] BMI 2022-08-16 14:37:00 23.79 kg/m2 [facility] Systolic blood pressure 2022-08-16 14:37:00 116 mm[Hg] [facility] Systolic blood pressure 2022-05-24 15:12:00 120 mm[Hg] [facility] Diastolic blood pressure 2022-05-24 15:12:00 79 mm[Hg] [facility] Heart rate 2022-05-24 15:12:00 80 /min [facility] Body temperature 2022-05-24 15:12:00 36.56 John [facility] Respiratory rate 2022-05-24 15:12:00 18 /min [facility] Body height 2022-05-24 15:12:00 162.6 cm [facility] Body weight 2022-05-24 15:12:00 62.188 kg [facility] BMI 2022-05-24 15:12:00 23.53 kg/m2 [facility] Systolic blood pressure 2022-03-01 15:41:00 120 mm[Hg] [facility] Diastolic blood pressure 2022-03-01 15:41:00 65 mm[Hg] [facility] Heart rate 2022-03-01 15:41:00 78 /min [facility] Body temperature 2022-03-01 15:41:00 36.89 John [facility] Respiratory rate 2022-03-01 15:41:00 16 /min [facility] Body height 2022-03-01 15:41:00 162.6 cm [facility] Body weight 2022-03-01 15:41:00 61.598 kg [facility] BMI 2022-03-01 15:41:00 23.31 kg/m2 [facility] Systolic blood pressure 2021-12-07 15:34:00 122 mm[Hg] [facility] Diastolic blood pressure 2021-12-07 15:34:00 77 mm[Hg] [facility] Heart rate 2021-12-07 15:34:00 75 /min [facility] Body temperature 2021-12-07 15:34:00 36.89 John [facility] Respiratory rate 2021-12-07 15:34:00 20 /min [facility] Body height 2021-12-07 15:34:00 162.6 cm [facility] Body weight 2021-12-07 15:34:00 60.374 kg [facility] BMI 2021-12-07 15:34:00 22.85 kg/m2 [facility] Procedures Procedure Date / Time Performed Performing Clinicia n Source POCT TEST 2022-11-16 14:02:00 Myron Thompson [facility] POCT TEST 2022-08-16 14:41:00 Myron Thompson [facility] Encounters Start Date/Time End Date/Time Encounter Type Admission Type Attending [facility] Facility Care Department Encounter ID Source 2023-10-07 15:06:45 2023-10-07 15:06:45 Outpatient [facility] [id number] Guevara Cruz Onel 2023-09-16 09:06:21 2023-09-16 09:06:21 Outpatient [facility] [id number] Guevara Cruz Onel 2023-07-15 16:23:53 2023-07-15 16:23:53 Outpatient [facility] [id number] Guevara Cruz Onel 2023-02-11 09:00:00 2023-02-11 09:00:00 Outpatient R [facility] [id number] [facility] 2022-11-16 09:15:00 2022-11-16 09:38:52 Outpatient R ALICIA THOMPSON [facility] [id number] [facility] 2022-11-16 09:15:00 2022-11-16 09:38:52 Office Visit Alicia Thompson [employer] PROGRAM MANAGER [facility] & [facility] [id number] 350.1.13.10 [id number] [id number] [facility] 2022-08-25 00:00:00 2022-08-25 00:00:00 Telephone Alicia Thompson [facility] PROGRAM MANAGER [facility] CHILD [facility] 1.840.114 350.1.13.10 4.2.7.2.686 [id number] [facility] 2022-08-24 00:00:00 2022-08-24 00:00:00 Telephone Alicia Thompson [facility] PROGRAM MANAGER [facility] 1..114 350.1.13.10 4.2.7.2.686 [id number] [facility] 2022-08-16 09:15:00 2022-08-16 10:29:40 Outpatient R ALICIA THOMPSON [facility] [id number] [facility] 2022-08-16 09:15:00 2022-08-16 10:29:40 Office Visit Alicia Thompson [facility] 1..114 350.1.13.10 4.2.7.2.686 [id number] [facility] 2022-08-16 09:15:00 2022-08-16 09:15:00 Outpatient R ALICIA THOMPSON [facility] [id number] [facility] 2022-05-24 09:30:00 2022-05-24 09:30:00 Nurse Visit Visit, [facility] Nurse Alicia Thompson [facility] 1.84.114 350.1.13.10 4.2.7.2.686 [id number] [facility] 2022-05-24 09:30:00 2022-05-24 09:20:42 Outpatient R ALICIA THOMPSON [facility] [id number] [facility] 2022-03-01 09:30:00 2022-03-01 09:40:13 Outpatient R BONNIE BAIRD [facility] [id number] [facility] 2022-03-01 09:30:00 2022-03-01 09:40:13 Nurse Visit Visit, [facility] Bonnie Gutierrez [facility] PROGRAM MANAGER [facility] & CHILD [facility] ..840.114 350.1.13.10 4.2.7.2.686 [id number] [facility] 2022-02-27 00:00:00 2022-02-27 00:00:00 Tori Nino [facility] [place] ..840.114 350.1.13.10 4.2.7.2.686 [id number] [facility] 2021-12-07 10:00:00 2021-12-07 10:32:14 Outpatient R PATRICIO SCHREIBER [facility] [id number] [facility] 2021-12-07 10:00:00 2021-12-07 10:32:14 [facility] PROGRAM MANAGER [facility] & CHILD [facility] ..840.114 350.1.13.10 4.2.7.2.686 [id number] [facility] 2021-12-07 10:00:00 2021-12-07 10:00:00 Outpatient R [facility] [id number] [facility] 2021-09-07 00:00:00 2021-09-07 00:00:00 Patricio Wagner [facility] PROGRAM MANAGER [facility] & CHILD [facility] ..840.114 350.1.13.10 4.2.7.2.686 [id number] [facility] 2021-09-06 09:45:00 2021-09-06 10:03:32 Outpatient PATRICIO PACKER [facility] [id number] [facility] 2021-09-06 09:45:00 2021-09-06 10:03:32 Office Visit Patricio Schreiber [facility] PROGRAM MANAGER [facility] & CHILD [facility] 1.84.114 350.1.13.10 4.2.7.2.686 [id number] [facility] 2021-09-06 09:45:00 2021-09-06 09:45:00 Outpatient PATRICIO PACKER [facility] [id number] [facility] 2021-08-22 13:30:00 2021-08-22 14:27:19 Outpatient PATRICIO PACKER [facility] [id number] [facility] 2021-08-22 13:30:00 2021-08-22 14:27:19 Outpatient PATRICIO PACKER [facility] [id number] [facility] 2021-08-22 13:30:00 2021-08-22 14:27:19 Outpatient PATRICIO PACKER [facility] [id number] [facility] 2021-08-22 13:30:00 2021-08-22 14:27:19 Office Visit Patricio Schreiber [facility] PROGRAM MANAGER [facility] 1.840.114 350.1.13.10 4.2.7.2.686 [id number] [facility] 2021-08-22 00:00:00 2021-08-22 00:00:00 Orders Only Doctor Unassigned, [facility] 1.840.114 350.1.13.10 4.2.7.2.686 [id number] [facility] Results Test Description Test Time Test Comments Results Result Co mments Source [facility] [id number] 14:02:00* Test Item Value Reference Range Interpretation Comme nts POCT PREG (test code = 1605) Negative On board controls acceptable with C Line (test code = 3574) Yes POCT PREG LOT # (test code = 3575) POCT PREG TEST DATE ( test code = 3576) [facility] [id number] 14:41:00* Test Item Value Reference Range Interpretation Comme nts POCT PREG (test code = 1605) Negative On board controls acceptable with C Line (test code = 3574) Yes POCT PREG LOT # (test code = 3575) POCT PREG TEST DATE ( test code = 3576) [facility] [id number] 14:41:00* Test Item Value Reference Range Interpretation Comme nts POCT PREG (test code = 1605) Negative On board controls acceptable with C Line (test code = 3574) Yes POCT PREG LOT # (test code = 3575) POCT PREG TEST DATE ( test code = 3576) [facility]
--- NOTE | 2024-07-16 21:36 | RAD REPORT ---
EXAM: CT brain without contrast HISTORY: TRAUMA COMPARISON: None TECHNIQUE: Multiple contiguous axial images were obtained and a CT of the brain without contrast. Sag ittal and coronal reformats were performed. One or more of the following dose reduction techniques were used: Automated exposure control, adjust ment of the mA and/or kV according to patient size, and/or iterative reconstruction. FINDINGS: No evidence of hydrocephalus, intracranial hemorrhage, or extra-axial fluid collection. The brain is normal in morphology. No evidence of midline shift or areas of brain edema. The calvarium is intact. The visualized paranasal sinuses and mastoid air cells are essentially clear . EXAM: CT of the cervical spine without contrast HISTORY: Neck pain, injury TRAUMA TECHNIQUE: Multiple contiguous axial images were obtained in a CT of the cervical spine without contr ast. Sagittal and coronal reformats were performed. FINDINGS: There is a fracture of the C7 vertebral body along its superior endplate as well as the ant erior aspect of the vertebral body vertically. Slight posterior retropulsion of the superior posterior endplate.. No involvement of the posterior elements seen. Mild prevertebral soft tissue sw elling. The lung apices are unremarkable. COMBINED IMPRESSION: No evidence of acute intracranial abnormality. C7 vertebral body fracture as detailed may be secondary to hyperflexion injury. No evidence of full stack software engineer ior element involvement. The findings were communicated with Patti Patten at 07/16/2024 9:33 PM by telephone.
--- NOTE | 2024-07-16 21:38 | RAD REPORT ---
EXAM: CT CHEST, ABDOMEN AND PELVIS WITHOUT CONTRAST CLINICAL INDICATION: [facility] TECHNIQUE: CT chest, abdomen and pelvis was performed without contrast, as per department protocol. A xial, sagittal and coronal reconstructions were obtained. One or more of the following dose reduction techniques were used: Automated exposure control, adjustment of the mA and/or kV according to patient size, and/or iterative reconstruction. Unless otherwise specified, incidental findings do not require dedicated imaging follow-up. Examination is limited by the lack of intravenous contrast material. COMPARISON: No prior exam. FINDINGS: LUNGS: No evidence of airspace or interstitial process. No nodules. PLEURA: No pleural effusion. No pneumothorax. MEDIASTINUM AND LYMPH NODES: No mediastinal mass or fluid collection. Normal size mediastinal, hilar, and axillary lymph nodes. OSSEOUS STRUCTURES AND CHEST WALL: Intact. LIVER: Normal in size and contour. No focal lesion or biliary dilatation. Cholecystectomy clips. PANCREAS: No mass, ductal dilation, or thai-pancreatic fluid. SPLEEN: Normal size. No focal lesion. ADRENALS: Normal; no mass. KIDNEYS: Normal size and contour. No hydronephrosis. URINARY BLADDER: Normal contour. GASTROINTESTINAL TRACT: No bowel obstruction, free air, significant free fluid or abscess. APPENDIX: Normal appendix. LYMPH NODES: No lymphadenopathy. MUSCULOSKELETAL: Areas of sclerosis in the vertebral column and H shaped vertebra and may be related to underlying anemia. Clinical correlation suggested. OTHER: Mild pelvic free fluid. IMPRESSION: No acute abnormalities seen in the chest, abdomen or pelvis.
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
[2024-07-16] MEDS ORDERED: ONDANSETRON 4 MG/2 ML VIAL ONE (21:53)
[2024-07-16] MEDS ORDERED: MORPHINE 4 MG/ML SYR ONE ×2 (21:53→22:45)
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
[2024-07-16 22:24] LABS: Hematocrit 33.7 % (36.0-45.0); Hemoglobin 11.1 g/dL (12.0-15.0); MCV 72.8 fL (80-100); RBC Red Blood Cell Count 4.63 M/uL (3.86-4.86)
[2024-07-16 22:25] LABS: Absolute Basophils 0.1 K/uL (0-0.5); Absolute Eosinophils 0.2 K/uL (0-0.5); Absolute Lymphocytes (CBC) 2.4 K/uL (0.7-4.9); Absolute Monocytes 0.8 K/uL (0.1-1.3); Absolute Neutrophil 10.6 K/uL (1.8-8.0); Basophils % 0.4 % (0-1.3); Eosinophils % 1.4 % (0-4.4); MPV 8.1 fL (7.6-11.3); Monocytes % 5.5 % (3.3-12.3); Neutrophils % 75.7 % (41.7-73.7); Percent Reticulocyte Count 2.95 % (0.4-2.05); Platelets 239 thou/uL (152-406); Red Cell Distribution Width 15.2 % (12.1-15.2)
[2024-07-16 22:48] LABS: Albumin 4.3 g/dL (3.4-5.0); Albumin/Globulin Ratio 1.1 (1.1-1.8); Anion Gap 11.7 mEq/L (5.0-15.0); Bilirubin Total 1.4 mg/dL (0.2-1.0); Globulin 3.9 g/dL (2.3-3.5); Potassium 3.7 mEq/L (3.5-5.1); Protein, Total 8.2 g/dL (6.4-8.2)
[2024-07-16 23:45] VITALS: O2SAT 100
[2024-07-16 23:46] VITALS: BP 135/80; TEMP 97.3
== END 2024-07-16 22:55 | disposition short-term general hospital (02) ==
LOC: ER 21:08
DX: S12.600A Unspecified displaced fracture of seventh cervical vertebra, initial encounter for closed fracture (principal); S16.9XXA Unspecified injury of muscle, fascia and tendon at neck level, initial encounter; S90.512A Abrasion, left ankle, initial encounter; V49.50XA Passenger injured in collision with unspecified motor vehicles in traffic accident, initial encounter
CPT/HCPCS: 85025; 36415; 85044; 80053; 70450; 71250; 72125; 74176; 73600; 96375; 96374; 99285; J2405